=== PATIENT | male | born 1935 | race Caucasian/White ===

== ENCOUNTER 2019-05-30 18:26 | Inpatient (IN) ==
[2019-05-30] MEDS ORDERED: METOPROLOL TARTRATE 5 MG/5 ML VIAL IV STA (19:18)
[2019-05-30 19:38] LABS: Basophils % 0.1 % (0.0-0.8); Hemoglobin 12.7 GM/DL (14.0-18.0); Immature Granulocytes % 0.7 %; Immature Granulocytes Absolute 0.07 #; Lymphocytes # 1.2 10*3/uL (1.4-4.0); Lymphocytes % 11.4 % (21.2-54.2); Mean Corpuscular HGB Conc 35.3 GM/DL (32-36); Mean Corpuscular Volume 85.3 FL (87-102); Mean Platelet Volume 9.8 FL (9.6-12.0); Monocytes % 9.8 % (1.7-12.7); Platelet Count 237 T/CUMM (130-400); Red Blood Count 4.22 MC/CUMM (3.8-5.5); White Blood Count 10.4 T/CUMM (4-12)
[2019-05-30 20:10] LABS: Albumin 3.3 G/DL (3.4-5.0); Bilirubin,Total 1.8 MG/DL (0.2-1.0); Calcium 8.3 MG/DL (8.5-10.1); Free T4 (Free Thyroxine) 1.65 NG/DL (0.76-1.46); Osmolality,Calculated 252.5 MOS/KG (273-304); Thyroid Stimulating Hormone 0.665 uIU/ml (0.358-3.74); Total Protein 6.1 G/DL (6.4-8.3)
[2019-05-30] MEDS ORDERED: cloNIDine 0.1 MG TABLET PO STA (20:32)
[2019-05-30] MEDS ORDERED: ONDANSETRON ODT 4 MG TABLET PO ONE ×2 (20:35→20:39)
[2019-05-30 20:37] LABS: Bilirubin,Urine Negative (Negative); Blood, Urine Trace mg/dL (Negative); Glucose,Urine (UA) Negative (Negative); Ketones,Urine 100 mg/dL (Negative); Mucus,Urine Occasional /LPF (Occasional); Nitrite,Urine Negative (Negative); Protein,Urine 30 MG/DL; RBC,Urine 6 /HPF (0-4); Squamous Epithelial Cell,Urine Occasional /HPF (0-10); Urine Color Yellow (Yellow); WBC,Urine 3 /HPF (0-6)
[2019-05-30 20:38] LABS: Apearance,Urine CLEAR (Clear)
[2019-05-30] MEDS ORDERED: ONDANSETRON ODT 4 MG TABLET PO STA (20:44)
[2019-05-30] MEDS ORDERED: ASPIRIN 325 MG TABLET ONE (20:45)
[2019-05-30] MEDS ORDERED: ASPIRIN CHEW 81 MG TABLET PO STA (20:51)
[2019-05-30] MEDS ORDERED: NITROGLYCERIN SL 0.4 MG TABLET SL STA (20:51)
[2019-05-30] MEDS ORDERED: ONDANSETRON 4 MG/2 ML VIAL IV ONE (20:57)
[2019-05-30] MEDS ORDERED: MORPHINE 4 MG/1 ML VIAL IV STA (20:57)
[2019-05-30] MEDS ORDERED: ENOXAPARIN 30 MG/0.3 ML SYRINGE SUBCUT STA (20:57)
[2019-05-30 21:00] LABS: Barbiturates Screen,Urine Negative (Negative); Benzodiazepines Screen,Urine Negative (Negative); Cannabinoid Screen,Urine Negative (Negative); Opiate Screen,Urine Positive (Negative); Phencyclidine Screen,Urine Negative (Negative)
[2019-05-30] MEDS ORDERED: NITROGLYCERIN SL 0.4 MG TABLET SL PRN (21:13)
[2019-05-30] MEDS: ASPIRIN CHEW 81 MG TABLET PO SCH (23:35)
[2019-05-30] MEDS: SODIUM CHLORIDE 0.9% 1,000 ML IV SCH (23:35)
[2019-05-31] MEDS: MORPHINE 4 MG/1 ML VIAL IV PRN ×3 (02:28→21:10)
[2019-05-31] MEDS: SODIUM CHLORIDE 0.9% 1,000 ML IV SCH ×3 (05:33→21:12)
[2019-05-31 07:33] LABS: Basophils % 0.2 % (0.0-0.8); Hematocrit 33.1 VOL% (42.0-52.0); Hemoglobin 11.3 GM/DL (14.0-18.0); Immature Granulocytes % 0.6 %; Immature Granulocytes Absolute 0.04 #; Lymphocytes # 1.4 10*3/uL (1.4-4.0); Lymphocytes % 21.6 % (21.2-54.2); Mean Corpuscular HGB Conc 34.1 GM/DL (32-36); Mean Corpuscular Volume 87.1 FL (87-102); Mean Platelet Volume 10.7 FL (9.6-12.0); Neutrophils % 62.6 % (38.7-73.9); Platelet Count 197 T/CUMM (130-400); Red Cell Distribution Width 12.3 % (9.3-17.3); White Blood Count 6.5 T/CUMM (4-12)
[2019-05-31] MEDS: ONDANSETRON 4 MG/2 ML VIAL IV PRN ×2 (07:50→21:10)
[2019-05-31] MEDS ORDERED: NITROGLYCERIN 2% OINT 1 INCH/GM PACK TOP SCH (07:56)
[2019-05-31] MEDS: PANTOPRAZOLE 40 MG VIAL IV SCH (07:59)
[2019-05-31 08:00] LABS: Osmolality,Calculated 255.1 MOS/KG (273-304)
[2019-05-31] MEDS ORDERED: POTASSIUM CHLORIDE RIDER 10 MEQ in PREMIX 1 EACH IV PRN (08:21)
[2019-05-31] MEDS: METOPROLOL SUCCINATE XL 25 MG TABLET PO SCH (08:51)
[2019-05-31] MEDS: LOSARTAN 50 MG TABLET PO SCH ×2 (08:52→21:10)
[2019-05-31] MEDS ORDERED: ENOXAPARIN 80 MG/0.8 ML SYRINGE SUBCUT SCH (09:00)
[2019-05-31] MEDS: ROSUVASTATIN 10 MG TABLET PO SCH (09:04)
[2019-05-31] MEDS ORDERED: DIAZEPAM 5 MG TABLET PO ONE (09:17)
[2019-05-31] MEDS ORDERED: MAGNESIUM SULF RIDER 2 GM in PREMIX 1 EACH IV PRN (09:17)
[2019-05-31] MEDS ORDERED: LIDOCAINE 1% 20 ML VIAL ONE (09:34)
[2019-05-31] MEDS ORDERED: NITROGLYCERIN DRIP 50 MG/250 ML BOTTLE IV ONE (09:34)
[2019-05-31] MEDS ORDERED: VERAPAMIL 5 MG/2 ML VIAL ONE (09:35)
[2019-05-31] MEDS ORDERED: HYDROmorphone 2 MG/1 ML VIAL ONE (10:05)
[2019-05-31] MEDS ORDERED: MIDAZOLAM 2 MG/2 ML VIAL ONE (10:06)
[2019-05-31] MEDS ORDERED: NITROGLYCERIN SL 0.4 MG TABLET SL PRN (10:38)
[2019-05-31] MEDS ORDERED: TICAGRELOR 90 MG TABLET ONE (10:54)
[2019-05-31] MEDS: POTASSIUM CHLORIDE 20 MEQ TABLET PO PRN ×4 (12:17→21:10)
[2019-05-31 13:37] LABS: CKMB % 4.9 %
[2019-05-31 13:41] LABS: Troponin I 2.37 NG/ML (0.00-0.045)
[2019-05-31] MEDS: TAMSULOSIN 0.4 MG CAPSULE PO SCH ×2 (13:50→21:10)
[2019-05-31] MEDS: TICAGRELOR 90 MG TABLET PO SCH (21:10)
[2019-05-31] MEDS: ASPIRIN CHEW 81 MG TABLET PO SCH (21:10)
[2019-05-31] MEDS ORDERED: ZALEPLON 5 MG CAPSULE PO PRN (22:15)
[2019-06-01] MEDS: MORPHINE 4 MG/1 ML VIAL IV PRN ×3 (02:38→13:56)
[2019-06-01 05:01] LABS: Basophils % 0.3 % (0.0-0.8); Eosinophils % 0.6 % (0.00-10.9); Hematocrit 30.3 VOL% (42.0-52.0); Hemoglobin 10.3 GM/DL (14.0-18.0); Immature Granulocytes % 0.6 %; Immature Granulocytes Absolute 0.04 #; Lymphocytes # 1.2 10*3/uL (1.4-4.0); Lymphocytes % 17.7 % (21.2-54.2); Mean Corpuscular Volume 88.6 FL (87-102); Mean Platelet Volume 10.9 FL (9.6-12.0); Monocytes % 12.3 % (1.7-12.7); Neutrophils % 68.5 % (38.7-73.9); Platelet Count 181 T/CUMM (130-400); Red Blood Count 3.42 MC/CUMM (3.8-5.5); Red Cell Distribution Width 12.5 % (9.3-17.3); White Blood Count 6.6 T/CUMM (4-12)
[2019-06-01] MEDS: SODIUM CHLORIDE 0.9% 1,000 ML IV SCH (05:15)
[2019-06-01 05:34] LABS: Calcium 8.1 MG/DL (8.5-10.1); Osmolality,Calculated 263.5 MOS/KG (273-304)
[2019-06-01 05:40] LABS: Risk Ratio 2.55
[2019-06-01 05:51] LABS: CKMB % 5.9 %
[2019-06-01 05:52] LABS: Troponin I 2.27 NG/ML (0.00-0.045)
[2019-06-01] MEDS ORDERED: ASPIRIN EC 81 MG TABLET PO SCH (09:00)
[2019-06-01] MEDS: ENOXAPARIN 40 MG/0.4 ML SYRINGE SUBCUT SCH (09:33)
[2019-06-01] MEDS: LOSARTAN 50 MG TABLET PO SCH (09:33)
[2019-06-01] MEDS: TICAGRELOR 90 MG TABLET PO SCH ×2 (09:33→22:32)
[2019-06-01] MEDS: TAMSULOSIN 0.4 MG CAPSULE PO SCH ×2 (09:33→22:33)
[2019-06-01] MEDS: METOPROLOL SUCCINATE XL 25 MG TABLET PO SCH (09:33)
[2019-06-01] MEDS: PANTOPRAZOLE 40 MG VIAL IV SCH (09:33)
[2019-06-01] MEDS: LORazepam 0.5 MG TABLET PO SCH ×2 (09:56→16:39)
[2019-06-01] MEDS ORDERED: METOPROLOL SUCCINATE XL 25 MG TABLET PO ONE (13:02)
[2019-06-01] MEDS: ONDANSETRON 4 MG/2 ML VIAL IV PRN (16:09)
[2019-06-01] MEDS: ZIPRASIDONE 20 MG CAPSULE PO SCH (22:32)
[2019-06-01] MEDS: SACUBITRIL/VALSARTAN 49-51 MG TABLET PO SCH (22:33)
[2019-06-01] MEDS: ASPIRIN CHEW 81 MG TABLET PO SCH (22:33)
[2019-06-02] MEDS: LORazepam 0.5 MG TABLET PO SCH ×2 (00:16→08:39)
[2019-06-02 05:18] LABS: Basophils % 0.3 % (0.0-0.8); Eosinophils # 0.1 10*3/uL (0.0-0.87); Eosinophils % 1.9 % (0.00-10.9); Hematocrit 34.2 VOL% (42.0-52.0); Hemoglobin 11.4 GM/DL (14.0-18.0); Immature Granulocytes % 0.6 %; Immature Granulocytes Absolute 0.04 #; Lymphocytes # 1.4 10*3/uL (1.4-4.0); Lymphocytes % 20.1 % (21.2-54.2); Mean Corpuscular HGB Conc 33.3 GM/DL (32-36); Mean Corpuscular Volume 89.5 FL (87-102); Mean Platelet Volume 10.8 FL (9.6-12.0); Monocytes % 10.7 % (1.7-12.7); Neutrophils % 66.4 % (38.7-73.9); Platelet Count 182 T/CUMM (130-400); Red Blood Count 3.82 MC/CUMM (3.8-5.5); Red Cell Distribution Width 12.7 % (9.3-17.3); White Blood Count 6.8 T/CUMM (4-12)
[2019-06-02 05:44] LABS: Calcium 8.5 MG/DL (8.5-10.1); Osmolality,Calculated 272.8 MOS/KG (273-304)
[2019-06-02] MEDS: PANTOPRAZOLE 40 MG VIAL IV SCH (08:38)
[2019-06-02] MEDS: ENOXAPARIN 40 MG/0.4 ML SYRINGE SUBCUT SCH (08:38)
[2019-06-02] MEDS: ROSUVASTATIN 10 MG TABLET PO SCH (08:39)
[2019-06-02] MEDS: SACUBITRIL/VALSARTAN 49-51 MG TABLET PO SCH (08:39)
[2019-06-02] MEDS: ZIPRASIDONE 20 MG CAPSULE PO SCH (08:39)
[2019-06-02] MEDS: TICAGRELOR 90 MG TABLET PO SCH (08:39)
[2019-06-02] MEDS: TAMSULOSIN 0.4 MG CAPSULE PO SCH (08:39)
[2019-06-02] MEDS: MORPHINE 4 MG/1 ML VIAL IV PRN ×2 (08:51→14:10)
[2019-06-02] MEDS ORDERED: METOPROLOL SUCCINATE XL 50 MG TABLET PO SCH (09:00)
[2019-06-02 13:48] VITALS: BP 163/80
== END 2019-06-02 15:40 | DRG 247 ==
LOC: N.ED 18:26 → N.EDINP 21:03 → N.TELEN 21:30
PROVIDERS: ADMIT Family Medicine; ATTEND Family Medicine
PROC: CLCCHCL (ICD-10-PCS; 2019-05-31 10:15)

== ENCOUNTER 2019-06-07 11:47 | Inpatient (IN) ==
[2019-06-07] MEDS ORDERED: SODIUM CHLORIDE 0.9% 500 ML IV STA (12:25)
[2019-06-07] MEDS ORDERED: ONDANSETRON 4 MG/2 ML VIAL IV STA (12:25)
[2019-06-07] MEDS ORDERED: MORPHINE 4 MG/1 ML VIAL IV STA (12:25)
[2019-06-07 14:17] LABS: Apearance,Urine CLEAR (Clear); Bilirubin,Urine Negative (Negative); Blood, Urine Moderate mg/dL (Negative); Glucose,Urine (UA) Negative (Negative); Hyaline Casts,Urine 4 /LPF (0-3); Ketones,Urine 5 mg/dL (Negative); Mucus,Urine Occasional /LPF (Occasional); Nitrite,Urine Negative (Negative); Protein,Urine Negative; RBC,Urine 46 /HPF (0-4); Urine Color Yellow (Yellow); Urine Specific Gravity 1.021 (1.001-1.035); WBC,Urine 1 /HPF (0-6)
[2019-06-07 17:12] LABS: Basophils % 0.1 % (0.0-0.8); Eosinophils % 0.3 % (0.00-10.9); Hematocrit 31.1 VOL% (42.0-52.0); Hemoglobin 10.2 GM/DL (14.0-18.0); Immature Granulocytes % 1.4 %; Immature Granulocytes Absolute 0.16 #; Lymphocytes # 0.7 10*3/uL (1.4-4.0); Lymphocytes % 6.1 % (21.2-54.2); Mean Corpuscular HGB Conc 32.8 GM/DL (32-36); Mean Corpuscular Volume 92.6 FL (87-102); Mean Platelet Volume 10.6 FL (9.6-12.0); Monocytes % 9.2 % (1.7-12.7); Neutrophils % 82.9 % (38.7-73.9); Platelet Count 175 T/CUMM (130-400); Red Blood Count 3.36 MC/CUMM (3.8-5.5); Red Cell Distribution Width 12.9 % (9.3-17.3); White Blood Count 11.4 T/CUMM (4-12)
[2019-06-07 17:20] LABS: INR 0.9
[2019-06-07 17:35] LABS: Albumin 2.8 G/DL (3.4-5.0); Bilirubin,Total 1.6 MG/DL (0.2-1.0); Calcium 8.1 MG/DL (8.5-10.1); Osmolality,Calculated 276.2 MOS/KG (273-304); Total Protein 5.9 G/DL (6.4-8.3)
[2019-06-07] MEDS ORDERED: ONDANSETRON 4 MG/2 ML VIAL IV PRN (17:37)
[2019-06-07] MEDS ORDERED: NITROGLYCERIN SL 0.4 MG TABLET SL PRN (17:37)
[2019-06-07] MEDS: SODIUM CHLORIDE 0.9% 1,000 ML IV SCH (18:46)
[2019-06-07] MEDS: ROSUVASTATIN 10 MG TABLET PO SCH (18:46)
[2019-06-07 18:53] LABS: Troponin I 0.075 NG/ML (0.00-0.045)
[2019-06-07] MEDS ORDERED: LOSARTAN 50 MG TABLET PO SCH (21:00)
[2019-06-07] MEDS: DOCUSATE SODIUM 100 MG CAPSULE PO SCH (21:33)
[2019-06-07] MEDS: SACUBITRIL/VALSARTAN 49-51 MG TABLET PO SCH (21:34)
[2019-06-07] MEDS: TAMSULOSIN 0.4 MG CAPSULE PO SCH (21:34)
[2019-06-07] MEDS: BENZTROPINE 0.5 MG TABLET PO SCH (21:37)
[2019-06-07 21:43] LABS: Troponin I 0.087 NG/ML (0.00-0.045)
[2019-06-07] MEDS: MORPHINE 4 MG/1 ML VIAL IV PRN (23:52)
[2019-06-08 00:04] LABS: Troponin I 0.083 NG/ML (0.00-0.045)
[2019-06-08 02:46] LABS: Basophils % 0.1 % (0.0-0.8); Eosinophils % 0.3 % (0.00-10.9); Hematocrit 29.4 VOL% (42.0-52.0); Hemoglobin 9.5 GM/DL (14.0-18.0); Immature Granulocytes % 0.9 %; Immature Granulocytes Absolute 0.07 #; Lymphocytes # 0.6 10*3/uL (1.4-4.0); Lymphocytes % 7.2 % (21.2-54.2); Mean Corpuscular HGB Conc 32.3 GM/DL (32-36); Mean Corpuscular Volume 91.9 FL (87-102); Mean Platelet Volume 10.5 FL (9.6-12.0); Monocytes % 10.6 % (1.7-12.7); Neutrophils % 80.9 % (38.7-73.9); Platelet Count 155 T/CUMM (130-400); Red Cell Distribution Width 12.9 % (9.3-17.3); White Blood Count 7.8 T/CUMM (4-12)
[2019-06-08 03:16] LABS: Albumin 2.5 G/DL (3.4-5.0); Bilirubin,Total 1.7 MG/DL (0.2-1.0); Osmolality,Calculated 274.2 MOS/KG (273-304); Total Protein 5.4 G/DL (6.4-8.3)
[2019-06-08 03:20] LABS: Troponin I 0.092 NG/ML (0.00-0.045)
[2019-06-08] MEDS: MORPHINE 4 MG/1 ML VIAL IV PRN ×3 (03:43→22:18)
[2019-06-08] MEDS: LEVOTHYROXINE 50 MCG TABLET PO SCH (06:49)
[2019-06-08] MEDS: SODIUM CHLORIDE 0.9% 1,000 ML IV SCH ×3 (07:10→21:12)
[2019-06-08] MEDS: BENZTROPINE 0.5 MG TABLET PO SCH ×2 (09:00→20:27)
[2019-06-08] MEDS: traZODone 50 MG TABLET PO SCH ×2 (09:00→15:48)
[2019-06-08] MEDS: TAMSULOSIN 0.4 MG CAPSULE PO SCH ×2 (09:00→20:28)
[2019-06-08] MEDS: DOCUSATE SODIUM 100 MG CAPSULE PO SCH ×2 (09:00→20:28)
[2019-06-08] MEDS: SACUBITRIL/VALSARTAN 49-51 MG TABLET PO SCH ×2 (09:10→20:27)
[2019-06-08] MEDS: METOPROLOL SUCCINATE XL 25 MG TABLET PO SCH (09:11)
[2019-06-08] MEDS: DILTIAZEM CD 120 MG CAPSULE PO SCH (09:11)
[2019-06-08] MEDS: PANTOPRAZOLE 40 MG VIAL IV SCH (09:12)
[2019-06-08] MEDS ORDERED: HEPARIN/NACL 0.9% 2 UNITS/ML 500 ML IV ONE (10:09)
[2019-06-08] MEDS ORDERED: VANCOMYCIN 1,000 MG VIAL ONE (11:33)
[2019-06-08] MEDS ORDERED: BISACODYL 10 MG SUPP RECTAL PRN (12:06)
[2019-06-08] MEDS ORDERED: PROMETHAZINE 25 MG/1 ML VIAL IM PRN (12:06)
[2019-06-08] MEDS ORDERED: LACTULOSE 20 GM/30 ML UDCUP PO PRN (12:06)
[2019-06-08] MEDS ORDERED: MAGNESIUM HYDROXIDE SUSP 30 ML UDCUP PO PRN (12:06)
[2019-06-08] MEDS ORDERED: diphenhydrAMINE CAP 25 MG CAPSULE PO PRN (12:06)
[2019-06-08] MEDS ORDERED: MORPHINE 4 MG/1 ML VIAL IV PRN (12:10)
[2019-06-08] MEDS ORDERED: propofoL 200 MG/20 ML VIAL IV ONE (12:38)
[2019-06-08] MEDS ORDERED: LIDOCAINE 2% 5 ML VIAL ONE (12:38)
[2019-06-08] MEDS ORDERED: PHENYLEPHRINE DRIP 20 MG/250 ML PREMIX IV ONE (12:38)
[2019-06-08] MEDS ORDERED: SEVOFLURANE 1 UNIT/15 MINUTE INH ONE (12:38)
[2019-06-08] MEDS ORDERED: GLYCOPYRROLATE 0.4 MG/2 ML VIAL ONE (12:39)
[2019-06-08] MEDS ORDERED: ROCURONIUM 100 MG/10 ML VIAL IV ONE (12:39)
[2019-06-08] MEDS ORDERED: ETOMIDATE 40 MG/20 ML VIAL IV ONE (12:39)
[2019-06-08] MEDS ORDERED: DEXAMETHASONE 4 MG/1 ML VIAL ONE (12:39)
[2019-06-08] MEDS ORDERED: ONDANSETRON 4 MG/2 ML VIAL ONE (12:39)
[2019-06-08] MEDS ORDERED: PHENYLEPHRINE 1 MG/10 ML SYRINGE IV ONE (12:39)
[2019-06-08] MEDS ORDERED: fentaNYL 100 MCG/2 ML VIAL ONE (12:39)
[2019-06-08] MEDS ORDERED: NEOSTIGMINE 10 MG/10 ML VIAL ONE (12:40)
[2019-06-08 13:24] LABS: ABG Base Excess -3.6 MMOL/L (-2.5-2.5); ABG HCO3 21.4 MMOL/L (20-26); ABG Oxygen Saturation 97.9 % (95-100); ABG PCO2 28.6 MM HG (35-48); ABG PH 7.445 (7.35-7.45)
[2019-06-08] MEDS ORDERED: hydrALAZINE 20 MG/1 ML VIAL IV PRN (14:13)
[2019-06-08] MEDS: buPROPion SR 150 MG TABLET PO SCH (15:48)
[2019-06-08] MEDS: CYANOCOBALAMIN 500 MCG TABLET PO SCH (15:48)
[2019-06-08] MEDS ORDERED: LIDOCAINE 2% TOP JELLY 20 ML VIAL INTRAURETH ONE (17:21)
[2019-06-09 04:59] LABS: Basophils % 0.1 % (0.0-0.8); Hematocrit 22.8 VOL% (42.0-52.0); Hemoglobin 7.4 GM/DL (14.0-18.0); Immature Granulocytes % 0.6 %; Immature Granulocytes Absolute 0.06 #; Lymphocytes # 0.5 10*3/uL (1.4-4.0); Lymphocytes % 5.4 % (21.2-54.2); Mean Corpuscular HGB Conc 32.5 GM/DL (32-36); Mean Corpuscular Volume 92.3 FL (87-102); Mean Platelet Volume 11.4 FL (9.6-12.0); Monocytes % 9.7 % (1.7-12.7); Neutrophils % 84.2 % (38.7-73.9); Platelet Count 162 T/CUMM (130-400); Red Blood Count 2.47 MC/CUMM (3.8-5.5); Red Cell Distribution Width 13.1 % (9.3-17.3)
[2019-06-09 05:19] LABS: Osmolality,Calculated 283.7 MOS/KG (273-304)
[2019-06-09] MEDS ORDERED: VANCOMYCIN INJ 1,000 MG in SODIUM CHLORIDE 0.9% 250 ML IV ONE (06:00)
[2019-06-09] MEDS: MORPHINE 4 MG/1 ML VIAL IV PRN ×3 (06:17→22:03)
[2019-06-09] MEDS ORDERED: SODIUM CHLORIDE 0.9% 1,000 ML IV PRN (07:06)
[2019-06-09] MEDS: LEVOTHYROXINE 50 MCG TABLET PO SCH (07:12)
[2019-06-09] MEDS: SODIUM CHLORIDE 0.9% 1,000 ML IV SCH ×2 (08:00→19:42)
[2019-06-09] MEDS: PANTOPRAZOLE 40 MG VIAL IV SCH (09:50)
[2019-06-09] MEDS: DOCUSATE SODIUM 100 MG CAPSULE PO SCH ×2 (09:50→20:24)
[2019-06-09] MEDS: SACUBITRIL/VALSARTAN 49-51 MG TABLET PO SCH ×2 (09:50→20:25)
[2019-06-09] MEDS: traZODone 50 MG TABLET PO SCH ×2 (09:50→11:59)
[2019-06-09] MEDS: DILTIAZEM CD 120 MG CAPSULE PO SCH (09:50)
[2019-06-09] MEDS: TICAGRELOR 90 MG TABLET PO SCH ×2 (09:50→20:25)
[2019-06-09] MEDS: TAMSULOSIN 0.4 MG CAPSULE PO SCH ×2 (09:50→20:24)
[2019-06-09] MEDS: BENZTROPINE 0.5 MG TABLET PO SCH ×2 (09:50→20:25)
[2019-06-09] MEDS: CYANOCOBALAMIN 500 MCG TABLET PO SCH (09:50)
[2019-06-09] MEDS: METOPROLOL SUCCINATE XL 25 MG TABLET PO SCH (09:50)
[2019-06-09] MEDS: buPROPion SR 150 MG TABLET PO SCH (09:50)
[2019-06-09] MEDS: ZIPRASIDONE 20 MG CAPSULE PO SCH ×2 (10:06→20:25)
[2019-06-09 13:02] LABS: Troponin I 0.083 NG/ML (0.00-0.045)
[2019-06-09] MEDS: ROSUVASTATIN 10 MG TABLET PO SCH (17:41)
[2019-06-09 20:46] LABS: Hematocrit 31.4 VOL% (42.0-52.0)
[2019-06-09 20:47] LABS: Hemoglobin 10.3 GM/DL (14.0-18.0)
[2019-06-10] MEDS: MORPHINE 4 MG/1 ML VIAL IV PRN (03:45)
[2019-06-10 05:01] LABS: Basophils % 0.1 % (0.0-0.8); Eosinophils % 0.1 % (0.00-10.9); Hematocrit 31.3 VOL% (42.0-52.0); Hemoglobin 10.4 GM/DL (14.0-18.0); Immature Granulocytes % 0.9 %; Immature Granulocytes Absolute 0.08 #; Lymphocytes # 0.8 10*3/uL (1.4-4.0); Lymphocytes % 9.3 % (21.2-54.2); Mean Corpuscular HGB Conc 33.2 GM/DL (32-36); Mean Corpuscular Volume 92.9 FL (87-102); Mean Platelet Volume 10.5 FL (9.6-12.0); Monocytes % 8.8 % (1.7-12.7); Neutrophils % 80.8 % (38.7-73.9); Platelet Count 147 T/CUMM (130-400); Red Blood Count 3.37 MC/CUMM (3.8-5.5); Red Cell Distribution Width 13.4 % (9.3-17.3)
[2019-06-10 05:33] LABS: Troponin I 0.074 NG/ML (0.00-0.045)
[2019-06-10] MEDS: LEVOTHYROXINE 50 MCG TABLET PO SCH (06:26)
[2019-06-10] MEDS: SODIUM CHLORIDE 0.9% 1,000 ML IV SCH ×2 (07:28→12:51)
[2019-06-10] MEDS: buPROPion SR 150 MG TABLET PO SCH (08:48)
[2019-06-10] MEDS: METOPROLOL SUCCINATE XL 25 MG TABLET PO SCH (08:48)
[2019-06-10] MEDS: DILTIAZEM CD 120 MG CAPSULE PO SCH (08:49)
[2019-06-10] MEDS: TAMSULOSIN 0.4 MG CAPSULE PO SCH ×2 (08:49→21:40)
[2019-06-10] MEDS: traZODone 50 MG TABLET PO SCH ×2 (08:49→12:51)
[2019-06-10] MEDS: ASPIRIN EC 81 MG TABLET PO SCH (08:49)
[2019-06-10] MEDS: BENZTROPINE 0.5 MG TABLET PO SCH ×2 (08:49→21:40)
[2019-06-10] MEDS: PANTOPRAZOLE 40 MG TABLET PO SCH (08:49)
[2019-06-10] MEDS: CYANOCOBALAMIN 500 MCG TABLET PO SCH (08:50)
[2019-06-10] MEDS: TICAGRELOR 90 MG TABLET PO SCH ×2 (08:50→21:40)
[2019-06-10] MEDS: ZIPRASIDONE 20 MG CAPSULE PO SCH ×2 (08:50→21:40)
[2019-06-10] MEDS: SACUBITRIL/VALSARTAN 49-51 MG TABLET PO SCH ×2 (08:50→21:40)
[2019-06-10] MEDS: DOCUSATE SODIUM 100 MG CAPSULE PO SCH ×2 (08:50→21:40)
[2019-06-10 12:29] LABS: Troponin I 0.064 NG/ML (0.00-0.045)
[2019-06-11] MEDS: SODIUM CHLORIDE 0.9% 1,000 ML IV SCH ×2 (03:40→17:20)
[2019-06-11 05:20] LABS: Basophils % 0.1 % (0.0-0.8); Eosinophils # 0.1 10*3/uL (0.0-0.87); Eosinophils % 0.8 % (0.00-10.9); Hematocrit 28.8 VOL% (42.0-52.0); Hemoglobin 9.4 GM/DL (14.0-18.0); Immature Granulocytes % 0.9 %; Immature Granulocytes Absolute 0.07 #; Lymphocytes # 0.8 10*3/uL (1.4-4.0); Mean Corpuscular HGB Conc 32.6 GM/DL (32-36); Mean Corpuscular Volume 93.5 FL (87-102); Mean Platelet Volume 10.7 FL (9.6-12.0); Monocytes % 8.6 % (1.7-12.7); Neutrophils % 79.6 % (38.7-73.9); Platelet Count 145 T/CUMM (130-400); Red Blood Count 3.08 MC/CUMM (3.8-5.5); Red Cell Distribution Width 13.2 % (9.3-17.3); White Blood Count 7.9 T/CUMM (4-12)
[2019-06-11] MEDS: ACETAMINOPHEN 325 MG TABLET PO PRN (06:14)
[2019-06-11] MEDS: LEVOTHYROXINE 50 MCG TABLET PO SCH (06:14)
[2019-06-11] MEDS: ZIPRASIDONE 20 MG CAPSULE PO SCH ×2 (08:23→20:57)
[2019-06-11] MEDS: buPROPion SR 150 MG TABLET PO SCH (08:23)
[2019-06-11] MEDS: traZODone 50 MG TABLET PO SCH ×2 (08:24→12:26)
[2019-06-11] MEDS: DILTIAZEM CD 120 MG CAPSULE PO SCH (08:24)
[2019-06-11] MEDS: TAMSULOSIN 0.4 MG CAPSULE PO SCH ×2 (08:25→20:58)
[2019-06-11] MEDS: PANTOPRAZOLE 40 MG TABLET PO SCH (08:25)
[2019-06-11] MEDS: TICAGRELOR 90 MG TABLET PO SCH ×2 (08:25→20:58)
[2019-06-11] MEDS: SACUBITRIL/VALSARTAN 49-51 MG TABLET PO SCH ×2 (08:25→20:57)
[2019-06-11] MEDS: DOCUSATE SODIUM 100 MG CAPSULE PO SCH ×2 (08:25→20:58)
[2019-06-11] MEDS: ASPIRIN EC 81 MG TABLET PO SCH (08:25)
[2019-06-11] MEDS: CYANOCOBALAMIN 500 MCG TABLET PO SCH (08:25)
[2019-06-11] MEDS: METOPROLOL SUCCINATE XL 25 MG TABLET PO SCH (08:25)
[2019-06-11] MEDS: BENZTROPINE 0.5 MG TABLET PO SCH ×2 (08:25→20:57)
[2019-06-11] MEDS ORDERED: TUBERCULIN SKIN TEST 0.1 ML SYRINGE INTRADERM ONE (14:54)
[2019-06-11] MEDS: ROSUVASTATIN 10 MG TABLET PO SCH (17:23)
[2019-06-11] MEDS: MORPHINE 4 MG/1 ML VIAL IV PRN (23:55)
[2019-06-12] MEDS: SODIUM CHLORIDE 0.9% 1,000 ML IV SCH ×4 (04:17→21:11)
[2019-06-12] MEDS: LEVOTHYROXINE 50 MCG TABLET PO SCH (06:22)
[2019-06-12] MEDS: ZIPRASIDONE 20 MG CAPSULE PO SCH (09:20)
[2019-06-12] MEDS: buPROPion SR 150 MG TABLET PO SCH (09:20)
[2019-06-12] MEDS: SACUBITRIL/VALSARTAN 49-51 MG TABLET PO SCH ×2 (09:21→21:11)
[2019-06-12] MEDS: ASPIRIN EC 81 MG TABLET PO SCH (09:22)
[2019-06-12] MEDS: traZODone 50 MG TABLET PO SCH ×2 (09:22→14:25)
[2019-06-12] MEDS: TICAGRELOR 90 MG TABLET PO SCH ×2 (09:23→21:12)
[2019-06-12] MEDS: PANTOPRAZOLE 40 MG TABLET PO SCH (09:24)
[2019-06-12] MEDS: DILTIAZEM CD 120 MG CAPSULE PO SCH (09:24)
[2019-06-12] MEDS: TAMSULOSIN 0.4 MG CAPSULE PO SCH ×2 (09:25→21:11)
[2019-06-12] MEDS: BENZTROPINE 0.5 MG TABLET PO SCH ×2 (09:25→21:11)
[2019-06-12] MEDS: DOCUSATE SODIUM 100 MG CAPSULE PO SCH ×2 (09:26→21:11)
[2019-06-12] MEDS: CYANOCOBALAMIN 500 MCG TABLET PO SCH (09:27)
[2019-06-12] MEDS: METOPROLOL SUCCINATE XL 25 MG TABLET PO SCH (09:29)
[2019-06-12] MEDS: traMADol 50 MG TABLET PO PRN (21:12)
[2019-06-13] MEDS: LEVOTHYROXINE 50 MCG TABLET PO SCH (05:55)
[2019-06-13] MEDS: traMADol 50 MG TABLET PO PRN ×2 (05:55→18:00)
[2019-06-13 06:25] LABS: Basophils % 0.1 % (0.0-0.8); Eosinophils # 0.1 10*3/uL (0.0-0.87); Eosinophils % 0.8 % (0.00-10.9); Hematocrit 27.3 VOL% (42.0-52.0); Hemoglobin 9.1 GM/DL (14.0-18.0); Immature Granulocytes % 0.6 %; Immature Granulocytes Absolute 0.05 #; Lymphocytes # 0.7 10*3/uL (1.4-4.0); Lymphocytes % 8.1 % (21.2-54.2); Mean Corpuscular HGB Conc 33.3 GM/DL (32-36); Mean Corpuscular Volume 91.9 FL (87-102); Mean Platelet Volume 10.6 FL (9.6-12.0); Monocytes % 5.8 % (1.7-12.7); Neutrophils % 84.6 % (38.7-73.9); Platelet Count 151 T/CUMM (130-400); Red Blood Count 2.97 MC/CUMM (3.8-5.5); Red Cell Distribution Width 13.3 % (9.3-17.3); White Blood Count 8.6 T/CUMM (4-12)
[2019-06-13 07:03] LABS: Albumin 1.7 G/DL (3.4-5.0); Bilirubin,Total 1.7 MG/DL (0.2-1.0); Calcium 6.7 MG/DL (8.5-10.1); Osmolality,Calculated 283.3 MOS/KG (273-304); Total Protein 4.3 G/DL (6.4-8.3)
[2019-06-13] MEDS: SODIUM CHLORIDE 0.9% 1,000 ML IV SCH (07:32)
[2019-06-13] MEDS: ASPIRIN EC 81 MG TABLET PO SCH (08:26)
[2019-06-13] MEDS: DILTIAZEM CD 120 MG CAPSULE PO SCH (08:26)
[2019-06-13] MEDS: SACUBITRIL/VALSARTAN 49-51 MG TABLET PO SCH ×2 (08:26→20:32)
[2019-06-13] MEDS: DOCUSATE SODIUM 100 MG CAPSULE PO SCH ×2 (08:27→20:32)
[2019-06-13] MEDS: TICAGRELOR 90 MG TABLET PO SCH ×2 (08:27→20:32)
[2019-06-13] MEDS: PANTOPRAZOLE 40 MG TABLET PO SCH (08:27)
[2019-06-13] MEDS: METOPROLOL SUCCINATE XL 25 MG TABLET PO SCH (08:27)
[2019-06-13] MEDS: BENZTROPINE 0.5 MG TABLET PO SCH ×2 (08:27→20:32)
[2019-06-13] MEDS: TAMSULOSIN 0.4 MG CAPSULE PO SCH ×2 (08:27→20:32)
[2019-06-13] MEDS: buPROPion SR 150 MG TABLET PO SCH (08:27)
[2019-06-13] MEDS: CYANOCOBALAMIN 500 MCG TABLET PO SCH (08:27)
[2019-06-13] MEDS: traZODone 50 MG TABLET PO SCH ×2 (08:27→11:21)
[2019-06-13] MEDS: LIDOCAINE 5% PATCH TRANSDERM SCH (11:22)
[2019-06-13] MEDS: MORPHINE 4 MG/1 ML VIAL IV PRN (21:00)
[2019-06-14] MEDS: traMADol 50 MG TABLET PO PRN ×4 (00:19→21:33)
[2019-06-14] MEDS: SODIUM CHLORIDE 0.9% 1,000 ML IV SCH ×4 (02:39→22:57)
[2019-06-14] MEDS ORDERED: POTASSIUM CHLORIDE 20 MEQ TABLET PO PRN (04:34)
[2019-06-14] MEDS ORDERED: POTASSIUM CHLORIDE 20 MEQ TABLET PO ONE (04:34)
[2019-06-14] MEDS: ALBUMIN 25% 25 GM in PREMIX 1 EACH IV SCH ×2 (05:56→15:20)
[2019-06-14] MEDS: LEVOTHYROXINE 50 MCG TABLET PO SCH (05:56)
[2019-06-14] MEDS: LIDOCAINE 5% PATCH TRANSDERM SCH (09:24)
[2019-06-14] MEDS: traZODone 50 MG TABLET PO SCH ×2 (09:25→12:40)
[2019-06-14] MEDS: DOCUSATE SODIUM 100 MG CAPSULE PO SCH ×2 (09:25→21:33)
[2019-06-14] MEDS: PANTOPRAZOLE 40 MG TABLET PO SCH (09:25)
[2019-06-14] MEDS: CYANOCOBALAMIN 500 MCG TABLET PO SCH (09:25)
[2019-06-14] MEDS: BENZTROPINE 0.5 MG TABLET PO SCH ×2 (09:25→21:33)
[2019-06-14] MEDS: DILTIAZEM CD 120 MG CAPSULE PO SCH (09:25)
[2019-06-14] MEDS: TICAGRELOR 90 MG TABLET PO SCH ×2 (09:25→21:28)
[2019-06-14] MEDS: ASPIRIN EC 81 MG TABLET PO SCH (09:25)
[2019-06-14] MEDS: TAMSULOSIN 0.4 MG CAPSULE PO SCH ×2 (09:25→21:33)
[2019-06-14] MEDS: buPROPion SR 150 MG TABLET PO SCH (09:25)
[2019-06-14] MEDS: METOPROLOL SUCCINATE XL 25 MG TABLET PO SCH (09:55)
[2019-06-14] MEDS: SACUBITRIL/VALSARTAN 49-51 MG TABLET PO SCH ×2 (09:55→21:33)
[2019-06-14] MEDS: ROSUVASTATIN 10 MG TABLET PO SCH (18:50)
[2019-06-14] MEDS: ZIPRASIDONE 20 MG CAPSULE PO SCH (21:33)
[2019-06-15] MEDS: ALBUMIN 25% 25 GM in PREMIX 1 EACH IV SCH ×4 (01:39→23:38)
[2019-06-15] MEDS: LEVOTHYROXINE 50 MCG TABLET PO SCH (05:43)
[2019-06-15 06:02] LABS: Basophils % 0.3 % (0.0-0.8); Eosinophils # 0.2 10*3/uL (0.0-0.87); Eosinophils % 2.3 % (0.00-10.9); Hematocrit 25.3 VOL% (42.0-52.0); Hemoglobin 8.3 GM/DL (14.0-18.0); Immature Granulocytes Absolute 0.08 #; Lymphocytes # 0.7 10*3/uL (1.4-4.0); Lymphocytes % 9.3 % (21.2-54.2); Mean Corpuscular HGB Conc 32.8 GM/DL (32-36); Mean Corpuscular Volume 94.1 FL (87-102); Mean Platelet Volume 11.1 FL (9.6-12.0); Monocytes % 6.7 % (1.7-12.7); Neutrophils % 80.4 % (38.7-73.9); Platelet Count 143 T/CUMM (130-400); Red Blood Count 2.69 MC/CUMM (3.8-5.5); Red Cell Distribution Width 13.7 % (9.3-17.3); White Blood Count 7.9 T/CUMM (4-12)
[2019-06-15 06:14] LABS: Albumin 2.7 G/DL (3.4-5.0); Bilirubin,Total 2.2 MG/DL (0.2-1.0); Osmolality,Calculated 281.4 MOS/KG (273-304); Total Protein 4.8 G/DL (6.4-8.3)
[2019-06-15] MEDS ORDERED: ERGOCALCIFEROL 50,000 UNIT CAPSULE PO SCH (07:23)
[2019-06-15] MEDS ORDERED: SODIUM CHLORIDE 0.9% 1,000 ML IV PRN (07:57)
[2019-06-15] MEDS: ASPIRIN EC 81 MG TABLET PO SCH (08:39)
[2019-06-15] MEDS: traZODone 50 MG TABLET PO SCH ×2 (08:39→13:36)
[2019-06-15] MEDS: METOPROLOL SUCCINATE XL 25 MG TABLET PO SCH (08:39)
[2019-06-15] MEDS: TAMSULOSIN 0.4 MG CAPSULE PO SCH ×2 (08:40→21:16)
[2019-06-15] MEDS: SACUBITRIL/VALSARTAN 49-51 MG TABLET PO SCH ×2 (08:40→21:16)
[2019-06-15] MEDS: TICAGRELOR 90 MG TABLET PO SCH ×2 (08:40→21:17)
[2019-06-15] MEDS: DILTIAZEM CD 120 MG CAPSULE PO SCH (08:40)
[2019-06-15] MEDS: ZIPRASIDONE 20 MG CAPSULE PO SCH ×2 (08:41→21:17)
[2019-06-15] MEDS: BENZTROPINE 0.5 MG TABLET PO SCH ×2 (08:41→21:17)
[2019-06-15] MEDS: PANTOPRAZOLE 40 MG TABLET PO SCH (08:41)
[2019-06-15] MEDS: DOCUSATE SODIUM 100 MG CAPSULE PO SCH ×2 (08:41→21:17)
[2019-06-15] MEDS: CYANOCOBALAMIN 500 MCG TABLET PO SCH (08:41)
[2019-06-15] MEDS: buPROPion SR 150 MG TABLET PO SCH (08:43)
[2019-06-15] MEDS: LIDOCAINE 5% PATCH TRANSDERM SCH (08:43)
[2019-06-15] MEDS: FERROUS SULFATE 325 MG TABLET PO SCH (09:05)
[2019-06-15] MEDS: ACETAMINOPHEN 325 MG TABLET PO PRN (09:05)
[2019-06-15] MEDS: traMADol 50 MG TABLET PO PRN (16:37)
[2019-06-15 19:51] LABS: Hematocrit 34.4 VOL% (42.0-52.0); Hemoglobin 11.3 GM/DL (14.0-18.0)
[2019-06-15] MEDS: MORPHINE 4 MG/1 ML VIAL IV PRN (21:32)
[2019-06-16] MEDS: LEVOTHYROXINE 50 MCG TABLET PO SCH (07:32)
[2019-06-16] MEDS: MORPHINE 4 MG/1 ML VIAL IV PRN (07:40)
[2019-06-16] MEDS: SODIUM CHLORIDE 0.9% 1,000 ML IV SCH (08:31)
[2019-06-16] MEDS: buPROPion SR 150 MG TABLET PO SCH (09:56)
[2019-06-16] MEDS: DOCUSATE SODIUM 100 MG CAPSULE PO SCH (09:56)
[2019-06-16] MEDS: TICAGRELOR 90 MG TABLET PO SCH (09:56)
[2019-06-16] MEDS: ZIPRASIDONE 20 MG CAPSULE PO SCH (09:56)
[2019-06-16] MEDS: SACUBITRIL/VALSARTAN 49-51 MG TABLET PO SCH (09:57)
[2019-06-16] MEDS: CYANOCOBALAMIN 500 MCG TABLET PO SCH (09:57)
[2019-06-16] MEDS: ASPIRIN EC 81 MG TABLET PO SCH (09:58)
[2019-06-16] MEDS: METOPROLOL SUCCINATE XL 25 MG TABLET PO SCH (09:58)
[2019-06-16] MEDS: traZODone 50 MG TABLET PO SCH ×2 (09:58→12:20)
[2019-06-16] MEDS: BENZTROPINE 0.5 MG TABLET PO SCH (09:58)
[2019-06-16] MEDS: FERROUS SULFATE 325 MG TABLET PO SCH (09:58)
[2019-06-16] MEDS: ALBUMIN 25% 25 GM in PREMIX 1 EACH IV SCH (09:58)
[2019-06-16] MEDS: DILTIAZEM CD 120 MG CAPSULE PO SCH (09:58)
[2019-06-16] MEDS: TAMSULOSIN 0.4 MG CAPSULE PO SCH (09:58)
[2019-06-16] MEDS: PANTOPRAZOLE 40 MG TABLET PO SCH (09:58)
[2019-06-16] MEDS: LIDOCAINE 5% PATCH TRANSDERM SCH (12:20)
[2019-06-16] MEDS: traMADol 50 MG TABLET PO PRN (12:20)
[2019-06-16 13:08] VITALS: BP 145/84
== END 2019-06-16 12:35 | DRG 480 ==
LOC: EDBD → EDUNIT# → N.ED 11:47 → N.EDINP 13:34 → N.3E 14:06 → N.CC 06-08 13:53 → N.3E 06-10 15:11
PROVIDERS: ADMIT Family Medicine; ATTEND Family Medicine

== ENCOUNTER 2019-06-22 09:44 | Inpatient (IN) ==
[2019-06-22] MEDS ORDERED: cefTRIAXone 1,000 MG in SODIUM CHLORIDE 0.9% 100 ML IV STA (10:49)
[2019-06-22] MEDS ORDERED: AZITHROMYCIN INJ 500 MG in SODIUM CHLORIDE 0.9% 250 ML IV STA (10:49)
[2019-06-22 10:56] LABS: Albumin 2.7 G/DL (3.4-5.0); Bilirubin,Total 2.1 MG/DL (0.2-1.0); Calcium 8.5 MG/DL (8.5-10.1); Osmolality,Calculated 290.1 MOS/KG (273-304); Total Protein 5.8 G/DL (6.4-8.3)
[2019-06-22] MEDS ORDERED: cefTRIAXone 1,000 MG in SYRINGE 1 EACH IV STA (11:00)
[2019-06-22 11:09] LABS: Apearance,Urine Slightly Hazy (Clear); Bacteria,Urine Many /HPF (Few); Bilirubin,Urine Negative (Negative); Blood, Urine Moderate mg/dL (Negative); Glucose,Urine (UA) Negative (Negative); Ketones,Urine Negative (Negative); Mucus,Urine Few /LPF (Occasional); Nitrite,Urine Negative (Negative); Protein,Urine 30 MG/DL; RBC,Urine 4 /HPF (0-4); Urine Color Amber (Yellow); WBC,Urine 13 /HPF (0-6)
[2019-06-22] MEDS ORDERED: SODIUM CHLORIDE 0.9% 1,000 ML IV STA (11:14)
[2019-06-22 11:45] LABS: Basophils % 0.2 % (0.0-0.8); Eosinophils % 0.2 % (0.00-10.9); Hematocrit 41.6 VOL% (42.0-52.0); Hemoglobin 13.6 GM/DL (14.0-18.0); Immature Granulocytes % 0.9 %; Immature Granulocytes Absolute 0.11 #; Lymphocytes # 0.9 10*3/uL (1.4-4.0); Lymphocytes % 6.8 % (21.2-54.2); Mean Corpuscular HGB Conc 32.7 GM/DL (32-36); Mean Corpuscular Volume 92.9 FL (87-102); Monocytes % 5.9 % (1.7-12.7); Platelet Count 167 T/CUMM (130-400); Red Blood Count 4.48 MC/CUMM (3.8-5.5); Red Cell Distribution Width 14.5 % (9.3-17.3); White Blood Count 12.9 T/CUMM (4-12)
[2019-06-22] MEDS ORDERED: ONDANSETRON 4 MG/2 ML VIAL IV PRN (12:00)
[2019-06-22] MEDS ORDERED: MAGNESIUM HYDROXIDE SUSP 30 ML UDCUP PO PRN (14:57)
[2019-06-22] MEDS ORDERED: LACTULOSE 20 GM/30 ML UDCUP PO PRN (14:57)
[2019-06-22] MEDS ORDERED: NITROGLYCERIN SL 0.4 MG TABLET SL PRN (14:57)
[2019-06-22] MEDS: SODIUM CHLORIDE 0.9% 1,000 ML IV SCH (15:05)
[2019-06-22] MEDS: VANCOMYCIN INJ 1,000 MG in SODIUM CHLORIDE 0.9% 250 ML IV SCH (17:38)
[2019-06-22] MEDS: TICAGRELOR 90 MG TABLET PO SCH (20:48)
[2019-06-22] MEDS: SACUBITRIL/VALSARTAN 49-51 MG TABLET PO SCH (20:49)
[2019-06-22] MEDS: LOSARTAN 50 MG TABLET PO SCH (20:49)
[2019-06-22] MEDS: ZIPRASIDONE 20 MG CAPSULE PO SCH (20:49)
[2019-06-22] MEDS: TAMSULOSIN 0.4 MG CAPSULE PO SCH (20:50)
[2019-06-22] MEDS: BENZTROPINE 0.5 MG TABLET PO SCH (20:50)
[2019-06-22] MEDS: DOCUSATE SODIUM 100 MG CAPSULE PO SCH (20:50)
[2019-06-22] MEDS ORDERED: ZIPRASIDONE 20 MG CAPSULE PO SCH (21:00)
[2019-06-23] MEDS: SODIUM CHLORIDE 0.9% 1,000 ML IV SCH ×3 (02:41→23:05)
[2019-06-23] MEDS: LEVOTHYROXINE 50 MCG TABLET PO SCH (05:49)
[2019-06-23] MEDS ORDERED: traZODone 50 MG TABLET PO SCH (09:00)
[2019-06-23] MEDS: LINACLOTIDE 145 MCG CAPSULE PO SCH (09:24)
[2019-06-23] MEDS: FERROUS SULFATE 325 MG TABLET PO SCH (09:24)
[2019-06-23] MEDS: DOCUSATE SODIUM 100 MG CAPSULE PO SCH ×2 (09:25→20:30)
[2019-06-23] MEDS: CYANOCOBALAMIN 500 MCG TABLET PO SCH (09:25)
[2019-06-23] MEDS: ASPIRIN EC 81 MG TABLET PO SCH (09:25)
[2019-06-23] MEDS: TAMSULOSIN 0.4 MG CAPSULE PO SCH ×2 (09:25→20:41)
[2019-06-23] MEDS: TICAGRELOR 90 MG TABLET PO SCH ×2 (09:25→20:30)
[2019-06-23] MEDS: PANTOPRAZOLE 40 MG TABLET PO SCH (09:25)
[2019-06-23] MEDS: ROSUVASTATIN 10 MG TABLET PO SCH (09:25)
[2019-06-23] MEDS: LOSARTAN 50 MG TABLET PO SCH ×2 (09:25→20:30)
[2019-06-23] MEDS: BENZTROPINE 0.5 MG TABLET PO SCH ×2 (09:25→20:29)
[2019-06-23] MEDS: SACUBITRIL/VALSARTAN 49-51 MG TABLET PO SCH ×2 (09:25→20:30)
[2019-06-23] MEDS: METOPROLOL SUCCINATE XL 25 MG TABLET PO SCH (09:25)
[2019-06-23] MEDS: cefTRIAXone 1,000 MG in SYRINGE 1 EACH IV SCH (09:26)
[2019-06-23] MEDS: ZIPRASIDONE 20 MG CAPSULE PO SCH ×2 (09:29→20:29)
[2019-06-23] MEDS: DILTIAZEM CD 120 MG CAPSULE PO SCH (09:29)
[2019-06-23] MEDS: VANCOMYCIN INJ 1,000 MG in SODIUM CHLORIDE 0.9% 250 ML IV SCH (09:30)
[2019-06-23] MEDS: LIDOCAINE 5% PATCH TRANSDERM SCH (10:23)
[2019-06-24] MEDS: VANCOMYCIN INJ 1,000 MG in SODIUM CHLORIDE 0.9% 250 ML IV SCH ×2 (04:05→22:46)
[2019-06-24] MEDS: LEVOTHYROXINE 50 MCG TABLET PO SCH (05:30)
[2019-06-24 05:36] LABS: Basophils % 0.5 % (0.0-0.8); Eosinophils # 0.3 10*3/uL (0.0-0.87); Eosinophils % 3.9 % (0.00-10.9); Hematocrit 35.5 VOL% (42.0-52.0); Hemoglobin 11.5 GM/DL (14.0-18.0); Immature Granulocytes % 1.2 %; Lymphocytes % 12.3 % (21.2-54.2); Mean Corpuscular HGB Conc 32.4 GM/DL (32-36); Mean Corpuscular Volume 92.9 FL (87-102); Mean Platelet Volume 12.1 FL (9.6-12.0); Monocytes % 7.1 % (1.7-12.7); Platelet Count 146 T/CUMM (130-400); Red Blood Count 3.82 MC/CUMM (3.8-5.5); Red Cell Distribution Width 14.4 % (9.3-17.3); White Blood Count 8.5 T/CUMM (4-12)
[2019-06-24 05:56] LABS: Calcium 7.8 MG/DL (8.5-10.1); Osmolality,Calculated 284.1 MOS/KG (273-304)
[2019-06-24] MEDS: SODIUM CHLORIDE 0.9% 1,000 ML IV SCH (09:01)
[2019-06-24] MEDS: METOPROLOL SUCCINATE XL 25 MG TABLET PO SCH (09:03)
[2019-06-24] MEDS: DILTIAZEM CD 120 MG CAPSULE PO SCH (09:03)
[2019-06-24] MEDS: ASPIRIN EC 81 MG TABLET PO SCH (09:03)
[2019-06-24] MEDS: BENZTROPINE 0.5 MG TABLET PO SCH ×2 (09:03→20:49)
[2019-06-24] MEDS: CYANOCOBALAMIN 500 MCG TABLET PO SCH (09:03)
[2019-06-24] MEDS: POTASSIUM CHLORIDE 20 MEQ/15 ML UDCUP PO SCH ×2 (09:04→20:59)
[2019-06-24] MEDS: ZIPRASIDONE 20 MG CAPSULE PO SCH ×2 (09:04→20:48)
[2019-06-24] MEDS: DEXT 5% NACL 0.45% KCL 40 MEQ 40 MEQ/1,000 ML BAG IV SCH (09:04)
[2019-06-24] MEDS: TICAGRELOR 90 MG TABLET PO SCH ×2 (09:04→20:50)
[2019-06-24] MEDS: FERROUS SULFATE 325 MG TABLET PO SCH (09:04)
[2019-06-24] MEDS: PANTOPRAZOLE 40 MG TABLET PO SCH (09:04)
[2019-06-24] MEDS: TAMSULOSIN 0.4 MG CAPSULE PO SCH ×2 (09:04→20:49)
[2019-06-24] MEDS: LOSARTAN 50 MG TABLET PO SCH ×2 (09:04→20:50)
[2019-06-24] MEDS: DOCUSATE SODIUM 100 MG CAPSULE PO SCH ×2 (09:04→20:49)
[2019-06-24] MEDS: LIDOCAINE 5% PATCH TRANSDERM SCH (09:07)
[2019-06-24] MEDS: LINACLOTIDE 145 MCG CAPSULE PO SCH (09:08)
[2019-06-24] MEDS: ACETAMINOPHEN 325 MG TABLET PO PRN (09:13)
[2019-06-24] MEDS: SACUBITRIL/VALSARTAN 49-51 MG TABLET PO SCH ×2 (09:14→20:49)
[2019-06-24] MEDS: cefTRIAXone 1,000 MG in SYRINGE 1 EACH IV SCH (09:15)
[2019-06-24] MEDS: CHLORHEXIDINE 0.12% ORAL RINSE 60 ML BOTTLE SWISH/SPIT SCH (20:50)
[2019-06-25] MEDS: DEXT 5% NACL 0.45% KCL 40 MEQ 40 MEQ/1,000 ML BAG IV SCH ×3 (02:39→20:17)
[2019-06-25] MEDS: ACETAMINOPHEN 325 MG TABLET PO PRN (04:08)
[2019-06-25] MEDS: LEVOTHYROXINE 50 MCG TABLET PO SCH (05:46)
[2019-06-25 06:38] LABS: Calcium 7.9 MG/DL (8.5-10.1); Osmolality,Calculated 275.8 MOS/KG (273-304)
[2019-06-25] MEDS: SACUBITRIL/VALSARTAN 49-51 MG TABLET PO SCH ×2 (09:22→23:03)
[2019-06-25] MEDS: CYANOCOBALAMIN 500 MCG TABLET PO SCH (09:22)
[2019-06-25] MEDS: LINACLOTIDE 145 MCG CAPSULE PO SCH (09:22)
[2019-06-25] MEDS: LOSARTAN 50 MG TABLET PO SCH ×2 (09:22→23:04)
[2019-06-25] MEDS: FERROUS SULFATE 325 MG TABLET PO SCH (09:23)
[2019-06-25] MEDS: ROSUVASTATIN 10 MG TABLET PO SCH (09:23)
[2019-06-25] MEDS: PANTOPRAZOLE 40 MG TABLET PO SCH (09:23)
[2019-06-25] MEDS: DOCUSATE SODIUM 100 MG CAPSULE PO SCH ×2 (09:23→23:04)
[2019-06-25] MEDS: DILTIAZEM CD 120 MG CAPSULE PO SCH (09:23)
[2019-06-25] MEDS: TAMSULOSIN 0.4 MG CAPSULE PO SCH ×2 (09:23→23:04)
[2019-06-25] MEDS: ASPIRIN EC 81 MG TABLET PO SCH (09:23)
[2019-06-25] MEDS: TICAGRELOR 90 MG TABLET PO SCH ×2 (09:23→23:04)
[2019-06-25] MEDS: ZIPRASIDONE 20 MG CAPSULE PO SCH ×2 (09:23→23:07)
[2019-06-25] MEDS: BENZTROPINE 0.5 MG TABLET PO SCH ×2 (09:23→23:03)
[2019-06-25] MEDS: METOPROLOL SUCCINATE XL 25 MG TABLET PO SCH (09:23)
[2019-06-25] MEDS: CHLORHEXIDINE 0.12% ORAL RINSE 60 ML BOTTLE SWISH/SPIT SCH ×2 (09:32→23:08)
[2019-06-25] MEDS: LIDOCAINE 5% PATCH TRANSDERM SCH (09:32)
[2019-06-25] MEDS: POTASSIUM CHLORIDE 20 MEQ/15 ML UDCUP PO SCH ×2 (09:32→23:03)
[2019-06-25] MEDS: cefTRIAXone 1,000 MG in SYRINGE 1 EACH IV SCH (09:33)
[2019-06-25] MEDS: VANCOMYCIN INJ 1,000 MG in SODIUM CHLORIDE 0.9% 250 ML IV SCH ×2 (10:10→23:00)
[2019-06-26] MEDS: DEXT 5% NACL 0.45% KCL 40 MEQ 40 MEQ/1,000 ML BAG IV SCH ×3 (06:13→19:00)
[2019-06-26] MEDS: LEVOTHYROXINE 50 MCG TABLET PO SCH (06:18)
[2019-06-26] MEDS: LINACLOTIDE 145 MCG CAPSULE PO SCH (09:02)
[2019-06-26] MEDS: PANTOPRAZOLE 40 MG TABLET PO SCH (09:02)
[2019-06-26] MEDS: CYANOCOBALAMIN 500 MCG TABLET PO SCH (09:02)
[2019-06-26] MEDS: TICAGRELOR 90 MG TABLET PO SCH ×2 (09:02→22:51)
[2019-06-26] MEDS: DOCUSATE SODIUM 100 MG CAPSULE PO SCH ×2 (09:02→22:51)
[2019-06-26] MEDS: TAMSULOSIN 0.4 MG CAPSULE PO SCH ×2 (09:02→22:51)
[2019-06-26] MEDS: METOPROLOL SUCCINATE XL 25 MG TABLET PO SCH (09:02)
[2019-06-26] MEDS: DILTIAZEM CD 120 MG CAPSULE PO SCH (09:03)
[2019-06-26] MEDS: cefTRIAXone 1,000 MG in SYRINGE 1 EACH IV SCH (09:03)
[2019-06-26] MEDS: ZIPRASIDONE 20 MG CAPSULE PO SCH ×2 (09:03→22:51)
[2019-06-26] MEDS: BENZTROPINE 0.5 MG TABLET PO SCH ×2 (09:03→22:51)
[2019-06-26] MEDS: POTASSIUM CHLORIDE 20 MEQ/15 ML UDCUP PO SCH ×2 (09:03→22:54)
[2019-06-26] MEDS: LOSARTAN 50 MG TABLET PO SCH ×2 (09:03→22:50)
[2019-06-26] MEDS: CHLORHEXIDINE 0.12% ORAL RINSE 60 ML BOTTLE SWISH/SPIT SCH ×2 (09:03→22:55)
[2019-06-26] MEDS: LIDOCAINE 5% PATCH TRANSDERM SCH (09:03)
[2019-06-26] MEDS: ASPIRIN EC 81 MG TABLET PO SCH (09:03)
[2019-06-26] MEDS: FERROUS SULFATE 325 MG TABLET PO SCH (09:03)
[2019-06-26] MEDS: SACUBITRIL/VALSARTAN 49-51 MG TABLET PO SCH ×2 (09:04→22:50)
[2019-06-26] MEDS: VANCOMYCIN INJ 1,000 MG in SODIUM CHLORIDE 0.9% 250 ML IV SCH ×2 (11:22→22:43)
[2019-06-27 05:54] LABS: Basophils % 0.5 % (0.0-0.8); Eosinophils # 0.2 10*3/uL (0.0-0.87); Eosinophils % 2.3 % (0.00-10.9); Hematocrit 39.6 VOL% (42.0-52.0); Hemoglobin 12.8 GM/DL (14.0-18.0); Immature Granulocytes Absolute 0.08 #; Lymphocytes # 1.1 10*3/uL (1.4-4.0); Lymphocytes % 13.5 % (21.2-54.2); Mean Corpuscular HGB Conc 32.3 GM/DL (32-36); Mean Corpuscular Volume 94.1 FL (87-102); Mean Platelet Volume 12.5 FL (9.6-12.0); Monocytes % 8.6 % (1.7-12.7); Neutrophils % 74.1 % (38.7-73.9); Platelet Count 169 T/CUMM (130-400); Red Blood Count 4.21 MC/CUMM (3.8-5.5); Red Cell Distribution Width 14.2 % (9.3-17.3); White Blood Count 8.3 T/CUMM (4-12)
[2019-06-27 06:29] LABS: Calcium 8.5 MG/DL (8.5-10.1); Osmolality,Calculated 274.5 MOS/KG (273-304)
[2019-06-27] MEDS: LEVOTHYROXINE 50 MCG TABLET PO SCH (07:15)
[2019-06-27] MEDS: DEXT 5% NACL 0.45% KCL 40 MEQ 40 MEQ/1,000 ML BAG IV SCH ×2 (07:16→20:35)
[2019-06-27] MEDS ORDERED: MAGNESIUM SULF RIDER 2 GM in PREMIX 1 EACH IV ONE (08:10)
[2019-06-27] MEDS: CHLORHEXIDINE 0.12% ORAL RINSE 60 ML BOTTLE SWISH/SPIT SCH ×2 (08:36→20:42)
[2019-06-27] MEDS: LIDOCAINE 5% PATCH TRANSDERM SCH (08:36)
[2019-06-27] MEDS: cefTRIAXone 1,000 MG in SYRINGE 1 EACH IV SCH (08:36)
[2019-06-27] MEDS: POTASSIUM CHLORIDE 20 MEQ/15 ML UDCUP PO SCH ×2 (08:36→20:36)
[2019-06-27] MEDS: PANTOPRAZOLE 40 MG TABLET PO SCH (08:37)
[2019-06-27] MEDS: LINACLOTIDE 145 MCG CAPSULE PO SCH (08:37)
[2019-06-27] MEDS: SACUBITRIL/VALSARTAN 49-51 MG TABLET PO SCH ×2 (08:37→20:37)
[2019-06-27] MEDS: ZIPRASIDONE 20 MG CAPSULE PO SCH ×2 (08:37→20:36)
[2019-06-27] MEDS: DOCUSATE SODIUM 100 MG CAPSULE PO SCH ×2 (08:37→20:36)
[2019-06-27] MEDS: CYANOCOBALAMIN 500 MCG TABLET PO SCH (08:37)
[2019-06-27] MEDS: BENZTROPINE 0.5 MG TABLET PO SCH ×2 (08:38→20:37)
[2019-06-27] MEDS: TAMSULOSIN 0.4 MG CAPSULE PO SCH ×2 (08:38→20:36)
[2019-06-27] MEDS: DILTIAZEM CD 120 MG CAPSULE PO SCH (08:38)
[2019-06-27] MEDS: FERROUS SULFATE 325 MG TABLET PO SCH (08:38)
[2019-06-27] MEDS: TICAGRELOR 90 MG TABLET PO SCH ×2 (08:38→20:36)
[2019-06-27] MEDS: ASPIRIN EC 81 MG TABLET PO SCH (08:38)
[2019-06-27] MEDS: METOPROLOL SUCCINATE XL 25 MG TABLET PO SCH (08:44)
[2019-06-27] MEDS: LOSARTAN 50 MG TABLET PO SCH ×2 (08:44→20:36)
[2019-06-27] MEDS: VANCOMYCIN INJ 1,000 MG in SODIUM CHLORIDE 0.9% 250 ML IV SCH (11:38)
[2019-06-27] MEDS ORDERED: VANCOMYCIN INJ 1,000 MG in SODIUM CHLORIDE 0.9% 250 ML IV SCH (18:00)
[2019-06-28] MEDS: DEXT 5% NACL 0.45% KCL 40 MEQ 40 MEQ/1,000 ML BAG IV SCH ×2 (03:00→10:02)
[2019-06-28 06:04] LABS: Calcium 8.4 MG/DL (8.5-10.1); Osmolality,Calculated 272.8 MOS/KG (273-304)
[2019-06-28] MEDS: LEVOTHYROXINE 50 MCG TABLET PO SCH (07:40)
[2019-06-28] MEDS: LIDOCAINE 5% PATCH TRANSDERM SCH (10:03)
[2019-06-28] MEDS: CHLORHEXIDINE 0.12% ORAL RINSE 60 ML BOTTLE SWISH/SPIT SCH (10:03)
[2019-06-28] MEDS: BENZTROPINE 0.5 MG TABLET PO SCH (10:04)
[2019-06-28] MEDS: ROSUVASTATIN 10 MG TABLET PO SCH (10:05)
[2019-06-28] MEDS: ZIPRASIDONE 20 MG CAPSULE PO SCH (10:05)
[2019-06-28] MEDS: METOPROLOL SUCCINATE XL 25 MG TABLET PO SCH (10:05)
[2019-06-28] MEDS: SACUBITRIL/VALSARTAN 49-51 MG TABLET PO SCH (10:05)
[2019-06-28] MEDS: DILTIAZEM CD 120 MG CAPSULE PO SCH (10:06)
[2019-06-28] MEDS: FERROUS SULFATE 325 MG TABLET PO SCH (10:06)
[2019-06-28] MEDS: ASPIRIN EC 81 MG TABLET PO SCH (10:06)
[2019-06-28] MEDS: TICAGRELOR 90 MG TABLET PO SCH (10:06)
[2019-06-28] MEDS: TAMSULOSIN 0.4 MG CAPSULE PO SCH (10:06)
[2019-06-28] MEDS: LOSARTAN 50 MG TABLET PO SCH (10:07)
[2019-06-28] MEDS: LINACLOTIDE 145 MCG CAPSULE PO SCH (10:07)
[2019-06-28] MEDS: PANTOPRAZOLE 40 MG TABLET PO SCH (10:07)
[2019-06-28] MEDS: DOCUSATE SODIUM 100 MG CAPSULE PO SCH (10:07)
[2019-06-28] MEDS: POTASSIUM CHLORIDE 20 MEQ/15 ML UDCUP PO SCH (10:08)
[2019-06-28] MEDS: cefTRIAXone 1,000 MG in SYRINGE 1 EACH IV SCH (10:08)
[2019-06-28] MEDS: CYANOCOBALAMIN 500 MCG TABLET PO SCH (10:08)
[2019-06-28 12:02] VITALS: BP 113/71
[2019-06-29] MEDS ORDERED: ERGOCALCIFEROL 50,000 UNIT CAPSULE PO SCH (09:00)
== END 2019-06-28 13:55 | DRG 871 ==
LOC: EDBD → EDUNIT# → N.ED 09:44 → N.EDINP 11:59 → N.2E 14:43
PROVIDERS: ADMIT Family Medicine; ATTEND Family Medicine

== ENCOUNTER 2019-07-05 10:27 | Inpatient (IN) ==
[2019-07-05] MEDS ORDERED: ONDANSETRON 4 MG/2 ML VIAL IV STA (11:00)
[2019-07-05] MEDS ORDERED: NITROGLYCERIN 2% OINT 1 INCH/GM PACK TOP STA (11:00)
[2019-07-05] MEDS ORDERED: MORPHINE 4 MG/1 ML VIAL IV STA (11:00)
[2019-07-05] MEDS ORDERED: ASPIRIN 325 MG TABLET PO STA (11:00)
[2019-07-05 11:08] LABS: Basophils % 0.4 % (0.0-0.8); Eosinophils # 0.1 10*3/uL (0.0-0.87); Eosinophils % 0.5 % (0.00-10.9); Hematocrit 40.5 VOL% (42.0-52.0); Hemoglobin 13.2 GM/DL (14.0-18.0); Immature Granulocytes % 0.8 %; Immature Granulocytes Absolute 0.09 #; Lymphocytes # 1.4 10*3/uL (1.4-4.0); Lymphocytes % 12.1 % (21.2-54.2); Mean Corpuscular HGB Conc 32.6 GM/DL (32-36); Mean Corpuscular Volume 93.3 FL (87-102); Mean Platelet Volume 10.8 FL (9.6-12.0); Monocytes % 6.3 % (1.7-12.7); Neutrophils % 79.9 % (38.7-73.9); Platelet Count 275 T/CUMM (130-400); Red Blood Count 4.34 MC/CUMM (3.8-5.5); Red Cell Distribution Width 13.9 % (9.3-17.3); White Blood Count 11.4 T/CUMM (4-12)
[2019-07-05 11:15] LABS: INR 0.9; PT Patient Result 9.6 SECS (9.6-12.2)
[2019-07-05 11:31] LABS: Albumin 2.8 G/DL (3.4-5.0); Bilirubin,Total 1.1 MG/DL (0.2-1.0); Calcium 9.3 MG/DL (8.5-10.1); Osmolality,Calculated 263.9 MOS/KG (273-304)
[2019-07-05] MEDS ORDERED: ENOXAPARIN 60 MG/0.6 ML SYRINGE SUBCUT STA (12:55)
[2019-07-05] MEDS ORDERED: MAGNESIUM HYDROXIDE SUSP 30 ML UDCUP PO PRN (15:30)
[2019-07-05] MEDS ORDERED: DEXTROSE 10% 250 ML BAG IV PRN (15:30)
[2019-07-05] MEDS ORDERED: GLUCAGON 1 MG VIAL IM PRN (15:30)
[2019-07-05] MEDS ORDERED: LACTULOSE 20 GM/30 ML UDCUP PO PRN (15:30)
[2019-07-05] MEDS ORDERED: NITROGLYCERIN SL 0.4 MG TABLET SL PRN (15:30)
[2019-07-05] MEDS: SODIUM CHLORIDE 0.9% 1,000 ML IV SCH (16:44)
[2019-07-05] MEDS: traMADol 50 MG TABLET PO PRN (17:36)
[2019-07-05] MEDS ORDERED: INSULIN REGULAR 100 UNIT/ML SUBCUT SCH (18:00)
[2019-07-05] MEDS: TICAGRELOR 90 MG TABLET PO SCH (20:51)
[2019-07-05] MEDS: SACUBITRIL/VALSARTAN 49-51 MG TABLET PO SCH (20:51)
[2019-07-05] MEDS: DOCUSATE SODIUM 100 MG CAPSULE PO SCH (20:51)
[2019-07-06] MEDS ORDERED: ENOXAPARIN 60 MG/0.6 ML SYRINGE SUBCUT SCH (01:00)
[2019-07-06] MEDS: traMADol 50 MG TABLET PO PRN ×2 (01:01→17:34)
[2019-07-06 05:17] LABS: Basophils % 0.5 % (0.0-0.8); Eosinophils # 0.1 10*3/uL (0.0-0.87); Eosinophils % 0.8 % (0.00-10.9); Hematocrit 33.7 VOL% (42.0-52.0); Hemoglobin 10.9 GM/DL (14.0-18.0); Immature Granulocytes % 0.6 %; Immature Granulocytes Absolute 0.05 #; Lymphocytes # 1.3 10*3/uL (1.4-4.0); Lymphocytes % 15.6 % (21.2-54.2); Mean Corpuscular HGB Conc 32.3 GM/DL (32-36); Mean Corpuscular Volume 94.1 FL (87-102); Mean Platelet Volume 11.1 FL (9.6-12.0); Monocytes % 7.4 % (1.7-12.7); Neutrophils % 75.1 % (38.7-73.9); Platelet Count 216 T/CUMM (130-400); Red Blood Count 3.58 MC/CUMM (3.8-5.5); Red Cell Distribution Width 13.9 % (9.3-17.3); White Blood Count 8.3 T/CUMM (4-12)
[2019-07-06 05:35] LABS: Alanine Aminotransferase < 9 U/L (16-61); Albumin 2.3 G/DL (3.4-5.0); Alkaline Phosphatase 86 U/L (45-117); Aspartate Amino Transferase 13 U/L (0-37); Blood Urea Nitrogen 21 MG/DL (7-18); Calcium 8.8 MG/DL (8.5-10.1); Estimated Glom Filtration Rate 82 ML/MIN; Glucose 110 MG/DL (74-106); HDL Cholesterol 41 MG/DL (40-60); Osmolality,Calculated 269.4 MOS/KG (273-304); Total Protein 5.8 G/DL (6.4-8.3); Triglycerides 119 MG/DL (2-150); VLDL CHOLESTEROL 23.8 MG/DL
[2019-07-06] MEDS: SODIUM CHLORIDE 0.9% 1,000 ML IV SCH (05:58)
[2019-07-06] MEDS: ONDANSETRON 4 MG/2 ML VIAL IV PRN ×3 (06:01→22:45)
[2019-07-06] MEDS: DEXTROSE 5% NACL 0.45% 1,000 ML IV SCH (08:25)
[2019-07-06] MEDS: LINACLOTIDE 145 MCG CAPSULE PO SCH (08:26)
[2019-07-06] MEDS: LIDOCAINE 5% PATCH TRANSDERM SCH (08:26)
[2019-07-06] MEDS: FERROUS SULFATE 325 MG TABLET PO SCH (08:27)
[2019-07-06] MEDS: ASPIRIN EC 81 MG TABLET PO SCH (08:28)
[2019-07-06] MEDS: PANTOPRAZOLE 40 MG TABLET PO SCH (08:28)
[2019-07-06] MEDS: SACUBITRIL/VALSARTAN 49-51 MG TABLET PO SCH ×2 (08:29→20:55)
[2019-07-06] MEDS: RIVAROXABAN 15 MG TABLET PO SCH ×2 (08:29→17:23)
[2019-07-06] MEDS: DOCUSATE SODIUM 100 MG CAPSULE PO SCH ×2 (08:29→20:55)
[2019-07-06] MEDS: TICAGRELOR 90 MG TABLET PO SCH ×2 (08:29→20:55)
[2019-07-06] MEDS ORDERED: DILTIAZEM CD 120 MG CAPSULE PO SCH (09:00)
[2019-07-06] MEDS ORDERED: PANTOPRAZOLE 40 MG VIAL IV SCH (09:00)
[2019-07-06] MEDS: ACETAMINOPHEN 325 MG TABLET PO PRN (09:50)
[2019-07-06] MEDS: MORPHINE 4 MG/1 ML VIAL IV PRN (19:37)
[2019-07-07 04:18] LABS: Basophils % 0.2 % (0.0-0.8); Eosinophils % 0.2 % (0.00-10.9); Hematocrit 35.8 VOL% (42.0-52.0); Hemoglobin 11.8 GM/DL (14.0-18.0); Immature Granulocytes % 0.6 %; Immature Granulocytes Absolute 0.05 #; Lymphocytes # 1.2 10*3/uL (1.4-4.0); Lymphocytes % 13.1 % (21.2-54.2); Mean Corpuscular Volume 92.7 FL (87-102); Mean Platelet Volume 10.1 FL (9.6-12.0); Monocytes % 6.5 % (1.7-12.7); Neutrophils % 79.4 % (38.7-73.9); Platelet Count 242 T/CUMM (130-400); Red Blood Count 3.86 MC/CUMM (3.8-5.5); Red Cell Distribution Width 13.7 % (9.3-17.3); White Blood Count 8.9 T/CUMM (4-12)
[2019-07-07] MEDS: MORPHINE 4 MG/1 ML VIAL IV PRN ×2 (04:21→20:38)
[2019-07-07] MEDS: ONDANSETRON 4 MG/2 ML VIAL IV PRN ×2 (04:22→10:15)
[2019-07-07 08:32] LABS: Albumin 2.7 G/DL (3.4-5.0); Bilirubin,Direct 0.24 MG/DL (0.0-0.20); Bilirubin,Indirect 0.6 MG/DL (0.0-1.0); Bilirubin,Total 0.8 MG/DL (0.2-1.0)
[2019-07-07] MEDS: DEXTROSE 5% NACL 0.45% 1,000 ML IV SCH ×2 (10:22→13:13)
[2019-07-07] MEDS: RIVAROXABAN 15 MG TABLET PO SCH ×2 (10:23→17:44)
[2019-07-07] MEDS: ASPIRIN EC 81 MG TABLET PO SCH (10:23)
[2019-07-07] MEDS: TICAGRELOR 90 MG TABLET PO SCH ×2 (10:23→20:39)
[2019-07-07] MEDS: SACUBITRIL/VALSARTAN 49-51 MG TABLET PO SCH ×2 (10:24→20:47)
[2019-07-07] MEDS: DOCUSATE SODIUM 100 MG CAPSULE PO SCH ×2 (10:24→20:38)
[2019-07-07] MEDS: TAMSULOSIN 0.4 MG CAPSULE PO SCH ×2 (10:25→20:39)
[2019-07-07] MEDS: FERROUS SULFATE 325 MG TABLET PO SCH (10:25)
[2019-07-07] MEDS: CHLORHEXIDINE 0.12% ORAL RINSE 60 ML BOTTLE SWISH/SPIT SCH ×3 (10:27→20:48)
[2019-07-07] MEDS: POTASSIUM CHLORIDE 20 MEQ/15 ML UDCUP PO SCH ×3 (10:27→20:48)
[2019-07-07] MEDS: LINACLOTIDE 145 MCG CAPSULE PO SCH (10:27)
[2019-07-07] MEDS: PANTOPRAZOLE 40 MG TABLET PO SCH (10:28)
[2019-07-07] MEDS: LIDOCAINE 5% PATCH TRANSDERM SCH (10:30)
[2019-07-07] MEDS: CYANOCOBALAMIN 500 MCG TABLET PO SCH (10:30)
[2019-07-07] MEDS: LINEZOLID 600 MG TABLET PO SCH ×2 (10:31→20:48)
[2019-07-07] MEDS ORDERED: ROSUVASTATIN 10 MG TABLET PO SCH (18:00)
[2019-07-08 04:13] LABS: Basophils % 0.1 % (0.0-0.8); Eosinophils % 0.2 % (0.00-10.9); Hemoglobin 11.1 GM/DL (14.0-18.0); Immature Granulocytes % 0.9 %; Immature Granulocytes Absolute 0.07 #; Lymphocytes # 1.3 10*3/uL (1.4-4.0); Lymphocytes % 16.1 % (21.2-54.2); Mean Corpuscular HGB Conc 31.7 GM/DL (32-36); Mean Corpuscular Volume 94.6 FL (87-102); Monocytes % 8.8 % (1.7-12.7); Neutrophils % 73.9 % (38.7-73.9); Platelet Count 226 T/CUMM (130-400); Red Cell Distribution Width 13.7 % (9.3-17.3); White Blood Count 8.1 T/CUMM (4-12)
[2019-07-08 04:48] LABS: Calcium 8.7 MG/DL (8.5-10.1); Osmolality,Calculated 273.5 MOS/KG (273-304)
[2019-07-08] MEDS ORDERED: LEVOTHYROXINE 50 MCG TABLET PO SCH (07:00)
[2019-07-08] MEDS: LINEZOLID 600 MG TABLET PO SCH (08:34)
[2019-07-08] MEDS: PANTOPRAZOLE 40 MG TABLET PO SCH (08:34)
[2019-07-08] MEDS: TICAGRELOR 90 MG TABLET PO SCH (08:34)
[2019-07-08] MEDS: POTASSIUM CHLORIDE 20 MEQ/15 ML UDCUP PO SCH (08:34)
[2019-07-08] MEDS: FERROUS SULFATE 325 MG TABLET PO SCH (08:34)
[2019-07-08] MEDS: ASPIRIN EC 81 MG TABLET PO SCH (08:34)
[2019-07-08] MEDS: TAMSULOSIN 0.4 MG CAPSULE PO SCH (08:34)
[2019-07-08] MEDS: DOCUSATE SODIUM 100 MG CAPSULE PO SCH (08:34)
[2019-07-08] MEDS: RIVAROXABAN 15 MG TABLET PO SCH (08:34)
[2019-07-08] MEDS: CYANOCOBALAMIN 500 MCG TABLET PO SCH (08:34)
[2019-07-08] MEDS: LIDOCAINE 5% PATCH TRANSDERM SCH (08:35)
[2019-07-08 08:39] VITALS: BP 127/71
[2019-07-08] MEDS: LINACLOTIDE 145 MCG CAPSULE PO SCH (08:39)
[2019-07-08] MEDS: SACUBITRIL/VALSARTAN 49-51 MG TABLET PO SCH (08:39)
[2019-07-08] MEDS: DEXTROSE 5% NACL 0.45% 1,000 ML IV SCH (08:40)
[2019-07-08] MEDS: CHLORHEXIDINE 0.12% ORAL RINSE 60 ML BOTTLE SWISH/SPIT SCH (08:40)
[2019-07-08] MEDS: ACETAMINOPHEN 325 MG TABLET PO PRN (10:25)
[2019-07-13] MEDS ORDERED: ERGOCALCIFEROL 50,000 UNIT CAPSULE PO SCH (08:05)
== END 2019-07-08 10:56 | DRG 176 ==
LOC: EDUNIT# → N.ED 10:27 → N.EDINP 13:01 → N.TELES 14:52
PROVIDERS: ADMIT Family Medicine; ATTEND Family Medicine

== ENCOUNTER 2019-07-16 13:23 | Observation (INO) ==
[2019-07-16] MEDS ORDERED: ASPIRIN 325 MG TABLET PO STA (13:49)
[2019-07-16] MEDS ORDERED: ONDANSETRON 4 MG/2 ML VIAL IV STA (13:49)
[2019-07-16] MEDS ORDERED: KETOROLAC 30 MG/1 ML VIAL IV STA (13:49)
[2019-07-16] MEDS ORDERED: ORPHENADRINE 60 MG/2 ML VIAL IV STA (13:49)
[2019-07-16 15:05] LABS: Basophils % 0.5 % (0.0-0.8); Eosinophils # 0.1 10*3/uL (0.0-0.87); Hematocrit 35.3 VOL% (42.0-52.0); Hemoglobin 11.5 GM/DL (14.0-18.0); Immature Granulocytes % 1.4 %; Immature Granulocytes Absolute 0.12 #; Lymphocytes # 1.9 10*3/uL (1.4-4.0); Lymphocytes % 21.1 % (21.2-54.2); Mean Corpuscular HGB Conc 32.6 GM/DL (32-36); Mean Corpuscular Volume 94.9 FL (87-102); Mean Platelet Volume 10.2 FL (9.6-12.0); Monocytes % 7.4 % (1.7-12.7); Neutrophils % 68.6 % (38.7-73.9); Platelet Count 233 T/CUMM (130-400); Red Blood Count 3.72 MC/CUMM (3.8-5.5); Red Cell Distribution Width 15.2 % (9.3-17.3); White Blood Count 8.9 T/CUMM (4-12)
[2019-07-16 15:15] LABS: INR 1.1; PT Patient Result 11.8 SECS (9.6-12.2); Partial Thromboplastin Time 29.9 SECS (20.8-36.0)
[2019-07-16 15:35] LABS: Alanine Aminotransferase 17 U/L (16-61); Albumin 3.1 G/DL (3.4-5.0); Alkaline Phosphatase 79 U/L (45-117); Aspartate Amino Transferase 18 U/L (0-37); Blood Urea Nitrogen 26 MG/DL (7-18); Calcium 9.6 MG/DL (8.5-10.1); Estimated Glom Filtration Rate 62 ML/MIN; Glucose 113 MG/DL (74-106); Total Protein 6.6 G/DL (6.4-8.3)
[2019-07-16 15:36] LABS: Troponin I 0.053 NG/ML (0.00-0.045)
[2019-07-16] MEDS ORDERED: NITROGLYCERIN 2% OINT 1 INCH/GM PACK TOP STA (16:00)
[2019-07-16] MEDS ORDERED: ONDANSETRON 4 MG/2 ML VIAL IV PRN (16:41)
[2019-07-16] MEDS ORDERED: ROSUVASTATIN 10 MG TABLET PO SCH (18:35)
[2019-07-16] MEDS ORDERED: NITROGLYCERIN SL 0.4 MG TABLET SL PRN (18:35)
[2019-07-16] MEDS ORDERED: MAGNESIUM HYDROXIDE SUSP 30 ML UDCUP PO PRN (18:35)
[2019-07-16] MEDS ORDERED: LACTULOSE 20 GM/30 ML UDCUP PO PRN (18:35)
[2019-07-16] MEDS: NITROGLYCERIN 2% OINT 1 INCH/GM PACK TOP SCH (19:11)
[2019-07-16] MEDS: DOCUSATE SODIUM 100 MG CAPSULE PO SCH (21:48)
[2019-07-16] MEDS: TAMSULOSIN 0.4 MG CAPSULE PO SCH (21:48)
[2019-07-16] MEDS: TICAGRELOR 90 MG TABLET PO SCH (21:48)
[2019-07-16] MEDS: BENZTROPINE 0.5 MG TABLET PO SCH (21:48)
[2019-07-16] MEDS: SACUBITRIL/VALSARTAN 49-51 MG TABLET PO SCH (21:48)
[2019-07-16] MEDS: POTASSIUM CHLORIDE 20 MEQ/15 ML UDCUP PO SCH (21:48)
[2019-07-16] MEDS: LINEZOLID 600 MG TABLET PO SCH (21:57)
[2019-07-17] MEDS: NITROGLYCERIN 2% OINT 1 INCH/GM PACK TOP SCH ×4 (00:43→17:56)
[2019-07-17] MEDS: traMADol 50 MG TABLET PO PRN ×3 (00:44→17:57)
[2019-07-17] MEDS: LEVOTHYROXINE 50 MCG TABLET PO SCH (06:08)
[2019-07-17 06:39] LABS: Blood Urea Nitrogen 34 MG/DL (7-18); Calcium 8.6 MG/DL (8.5-10.1); Estimated Glom Filtration Rate 59 ML/MIN; Glucose 114 MG/DL (74-106); Osmolality,Calculated 281.8 MOS/KG (273-304)
[2019-07-17 06:41] LABS: Troponin I 0.073 NG/ML (0.00-0.045)
[2019-07-17] MEDS: LIDOCAINE 5% PATCH TRANSDERM SCH (09:19)
[2019-07-17] MEDS: PANTOPRAZOLE 40 MG TABLET PO SCH (09:20)
[2019-07-17] MEDS: TICAGRELOR 90 MG TABLET PO SCH ×2 (09:20→21:46)
[2019-07-17] MEDS: RIVAROXABAN 20 MG TABLET PO SCH (09:20)
[2019-07-17] MEDS: TAMSULOSIN 0.4 MG CAPSULE PO SCH ×2 (09:20→21:46)
[2019-07-17] MEDS: LINACLOTIDE 145 MCG CAPSULE PO SCH (09:20)
[2019-07-17] MEDS: SACUBITRIL/VALSARTAN 49-51 MG TABLET PO SCH ×2 (09:20→21:46)
[2019-07-17] MEDS: DOCUSATE SODIUM 100 MG CAPSULE PO SCH ×2 (09:20→21:46)
[2019-07-17] MEDS: POTASSIUM CHLORIDE 20 MEQ/15 ML UDCUP PO SCH ×2 (09:20→21:47)
[2019-07-17] MEDS: BENZTROPINE 0.5 MG TABLET PO SCH ×2 (09:20→21:47)
[2019-07-17] MEDS: LINEZOLID 600 MG TABLET PO SCH ×2 (09:23→21:46)
[2019-07-17] MEDS ORDERED: SODIUM CHLORIDE 0.9% 500 ML IV ONE (15:18)
[2019-07-18] MEDS: NITROGLYCERIN 2% OINT 1 INCH/GM PACK TOP SCH ×4 (00:45→18:06)
[2019-07-18 02:15] LABS: Apearance,Urine CLEAR (Clear); Bilirubin,Urine Negative (Negative); Blood, Urine Moderate mg/dL (Negative); Glucose,Urine (UA) 50 mg/dL (Negative); Ketones,Urine Negative (Negative); Mucus,Urine Few /LPF (Occasional); Nitrite,Urine Negative (Negative); Protein,Urine Negative; RBC,Urine 61 /HPF (0-4); Urine Color Colorless (Yellow); Urine Specific Gravity 1.005 (1.001-1.035); Urine Urobilinogen < 2.0 EU/DL (0.2-1.0); WBC,Urine 3 /HPF (0-6)
[2019-07-18] MEDS: LEVOTHYROXINE 50 MCG TABLET PO SCH (06:08)
[2019-07-18] MEDS: traMADol 50 MG TABLET PO PRN ×3 (06:20→14:50)
[2019-07-18] MEDS: LINACLOTIDE 145 MCG CAPSULE PO SCH (09:12)
[2019-07-18] MEDS: LIDOCAINE 5% PATCH TRANSDERM SCH (09:12)
[2019-07-18] MEDS: TAMSULOSIN 0.4 MG CAPSULE PO SCH ×2 (09:13→21:46)
[2019-07-18] MEDS: RIVAROXABAN 20 MG TABLET PO SCH (09:13)
[2019-07-18] MEDS: PANTOPRAZOLE 40 MG TABLET PO SCH (09:13)
[2019-07-18] MEDS: POTASSIUM CHLORIDE 20 MEQ/15 ML UDCUP PO SCH ×2 (09:13→21:46)
[2019-07-18] MEDS: LINEZOLID 600 MG TABLET PO SCH ×2 (09:13→21:46)
[2019-07-18] MEDS: TICAGRELOR 90 MG TABLET PO SCH ×2 (09:13→21:46)
[2019-07-18] MEDS: DOCUSATE SODIUM 100 MG CAPSULE PO SCH ×2 (09:14→21:46)
[2019-07-18] MEDS: BENZTROPINE 0.5 MG TABLET PO SCH ×2 (10:27→21:46)
[2019-07-18] MEDS: SACUBITRIL/VALSARTAN 49-51 MG TABLET PO SCH ×2 (10:27→21:46)
[2019-07-18] MEDS ORDERED: METOPROLOL SUCCINATE XL 25 MG TABLET PO ONE (12:50)
[2019-07-19] MEDS: traMADol 50 MG TABLET PO PRN ×2 (00:08→12:27)
[2019-07-19] MEDS: NITROGLYCERIN 2% OINT 1 INCH/GM PACK TOP SCH ×3 (00:08→12:29)
[2019-07-19] MEDS: LEVOTHYROXINE 50 MCG TABLET PO SCH (06:01)
[2019-07-19] MEDS ORDERED: METOPROLOL SUCCINATE XL 25 MG TABLET PO SCH ×2 (09:00)
[2019-07-19] MEDS: SACUBITRIL/VALSARTAN 49-51 MG TABLET PO SCH (09:29)
[2019-07-19] MEDS: RIVAROXABAN 20 MG TABLET PO SCH (09:29)
[2019-07-19] MEDS: LINEZOLID 600 MG TABLET PO SCH (09:29)
[2019-07-19] MEDS: BENZTROPINE 0.5 MG TABLET PO SCH (09:29)
[2019-07-19] MEDS: PANTOPRAZOLE 40 MG TABLET PO SCH (09:30)
[2019-07-19] MEDS: TICAGRELOR 90 MG TABLET PO SCH (09:30)
[2019-07-19] MEDS: DOCUSATE SODIUM 100 MG CAPSULE PO SCH (09:30)
[2019-07-19] MEDS: LINACLOTIDE 145 MCG CAPSULE PO SCH (09:30)
[2019-07-19] MEDS: TAMSULOSIN 0.4 MG CAPSULE PO SCH (09:30)
[2019-07-19] MEDS: LIDOCAINE 5% PATCH TRANSDERM SCH (09:36)
[2019-07-19] MEDS: POTASSIUM CHLORIDE 20 MEQ/15 ML UDCUP PO SCH (09:43)
[2019-07-19] MEDS ORDERED: MENTHOL/ZINC OXIDE OINT 71 GM JAR TOP SCH (11:30)
[2019-07-19] MEDS ORDERED: SKIN HEALING OINT (AQUAPHOR) 50 GM TUBE TOP SCH (11:30)
[2019-07-19 12:00] VITALS: BP 120/69
== END 2019-07-19 13:42 ==
LOC: EDUNIT# → N.ED 13:23 → N.EDINP 13:23 → N.TELEN 18:29
PROVIDERS: ADMIT Family Medicine; ATTEND Family Medicine

== ENCOUNTER 2019-07-27 01:02 | Observation (INO) ==
[2019-07-27 02:32] LABS: Bacteria,Urine Many /HPF (Few); Bilirubin,Urine Negative (Negative); Blood, Urine Large mg/dL (Negative); Glucose,Urine (UA) Negative (Negative); Hyaline Casts,Urine 96 /LPF (0-3); Ketones,Urine 5 mg/dL (Negative); Mucus,Urine Many /LPF (Occasional); Nitrite,Urine Negative (Negative); Protein,Urine 100 MG/DL; RBC,Urine 1675 /HPF (0-4); Urine Color Red (Yellow); Urine Specific Gravity 1.018 (1.001-1.035); Urine Urobilinogen < 2.0 EU/DL (0.2-1.0); WBC,Urine 8828 /HPF (0-6)
[2019-07-27] MEDS ORDERED: DOXYCYCLINE HYCLATE INJ 100 MG in SODIUM CHLORIDE 0.9% 100 ML IV STA (02:45)
[2019-07-27 02:59] LABS: Basophils # 0.1 10*3/uL (0.0-0.2); Basophils % 0.7 % (0.0-0.8); Eosinophils # 0.2 10*3/uL (0.0-0.87); Eosinophils % 2.7 % (0.00-10.9); Hematocrit 31.7 VOL% (42.0-52.0); Immature Granulocytes % 0.9 %; Immature Granulocytes Absolute 0.07 #; Lymphocytes # 2.8 10*3/uL (1.4-4.0); Lymphocytes % 34.7 % (21.2-54.2); Mean Corpuscular HGB Conc 31.5 GM/DL (32-36); Mean Corpuscular Volume 97.8 FL (87-102); Mean Platelet Volume 11.5 FL (9.6-12.0); Monocytes % 9.9 % (1.7-12.7); Neutrophils % 51.1 % (38.7-73.9); Platelet Count 196 T/CUMM (130-400); Red Blood Count 3.24 MC/CUMM (3.8-5.5); Red Cell Distribution Width 15.8 % (9.3-17.3); White Blood Count 8.2 T/CUMM (4-12)
[2019-07-27 03:03] LABS: Bilirubin,Total 0.8 MG/DL (0.2-1.0); Calcium 8.9 MG/DL (8.5-10.1); Osmolality,Calculated 288.5 MOS/KG (273-304); Total Protein 5.7 G/DL (6.4-8.3)
[2019-07-27] MEDS ORDERED: SODIUM CHLORIDE 0.9% 1,000 ML IV STA (03:03)
[2019-07-27] MEDS ORDERED: SULFAMETHOX/TRIMETHOPRIM 800-160 MG TABLET PO STA (03:25)
[2019-07-27] MEDS ORDERED: ONDANSETRON 4 MG/2 ML VIAL IV PRN (03:33)
[2019-07-27] MEDS: SODIUM CHLORIDE 0.9% 1,000 ML IV SCH ×2 (05:31→16:31)
[2019-07-27] MEDS: VANCOMYCIN INJ 1,000 MG in SODIUM CHLORIDE 0.9% 250 ML IV SCH ×2 (05:32→16:31)
[2019-07-27 07:31] LABS: Basophils # 0.1 10*3/uL (0.0-0.2); Basophils % 0.7 % (0.0-0.8); Eosinophils # 0.2 10*3/uL (0.0-0.87); Eosinophils % 2.9 % (0.00-10.9); Hemoglobin 9.6 GM/DL (14.0-18.0); Immature Granulocytes % 0.7 %; Immature Granulocytes Absolute 0.05 #; Lymphocytes # 2.4 10*3/uL (1.4-4.0); Lymphocytes % 32.7 % (21.2-54.2); Mean Corpuscular Volume 97.7 FL (87-102); Mean Platelet Volume 11.2 FL (9.6-12.0); Monocytes % 9.7 % (1.7-12.7); Neutrophils % 53.3 % (38.7-73.9); Platelet Count 178 T/CUMM (130-400); Red Blood Count 3.07 MC/CUMM (3.8-5.5); Red Cell Distribution Width 15.9 % (9.3-17.3); White Blood Count 7.2 T/CUMM (4-12)
[2019-07-27 07:53] LABS: Albumin 2.6 G/DL (3.4-5.0); Bilirubin,Total 0.8 MG/DL (0.2-1.0); Calcium 8.8 MG/DL (8.5-10.1); Osmolality,Calculated 285.7 MOS/KG (273-304); Total Protein 5.5 G/DL (6.4-8.3)
[2019-07-27] MEDS: TAMSULOSIN 0.4 MG CAPSULE PO SCH ×2 (08:53→18:39)
[2019-07-27] MEDS: DOCUSATE SODIUM 100 MG CAPSULE PO SCH ×2 (08:54→21:57)
[2019-07-27] MEDS: METOPROLOL SUCCINATE XL 25 MG TABLET PO SCH (08:54)
[2019-07-27] MEDS: BENZTROPINE 0.5 MG TABLET PO SCH ×2 (08:54→21:57)
[2019-07-27] MEDS: LEVOTHYROXINE 50 MCG TABLET PO SCH (08:54)
[2019-07-27] MEDS: SACUBITRIL/VALSARTAN 49-51 MG TABLET PO SCH ×2 (08:54→21:54)
[2019-07-27] MEDS: FERROUS SULFATE 325 MG TABLET PO SCH (08:54)
[2019-07-27] MEDS: CYANOCOBALAMIN 500 MCG TABLET PO SCH (08:54)
[2019-07-27] MEDS: PANTOPRAZOLE 40 MG TABLET PO SCH (08:55)
[2019-07-27] MEDS ORDERED: ENOXAPARIN 30 MG/0.3 ML SYRINGE SUBCUT SCH (09:00)
[2019-07-27] MEDS ORDERED: TICAGRELOR 90 MG TABLET PO SCH (09:00)
[2019-07-27 09:19] LABS: Troponin I 0.072 NG/ML (0.00-0.045)
[2019-07-27 11:17] LABS: Troponin I 0.083 NG/ML (0.00-0.045)
[2019-07-27] MEDS ORDERED: CLOPIDOGREL 300 MG TABLET PO ONE (16:00)
[2019-07-27] MEDS: traMADol 50 MG TABLET PO PRN (16:30)
[2019-07-27] MEDS: MENTHOL/ZINC OXIDE OINT 71 GM JAR TOP SCH ×2 (16:31→21:57)
[2019-07-27] MEDS ORDERED: RIVAROXABAN 20 MG TABLET PO SCH (18:00)
[2019-07-27] MEDS: APIXABAN 5 MG TABLET PO SCH (21:57)
[2019-07-28] MEDS: SODIUM CHLORIDE 0.9% 1,000 ML IV SCH ×3 (01:26→16:51)
[2019-07-28] MEDS: VANCOMYCIN INJ 1,000 MG in SODIUM CHLORIDE 0.9% 250 ML IV SCH ×2 (06:29→18:36)
[2019-07-28] MEDS: LEVOTHYROXINE 50 MCG TABLET PO SCH (06:29)
[2019-07-28] MEDS ORDERED: ROSUVASTATIN 10 MG TABLET PO SCH (09:00)
[2019-07-28] MEDS: BENZTROPINE 0.5 MG TABLET PO SCH ×2 (09:18→21:48)
[2019-07-28] MEDS: FERROUS SULFATE 325 MG TABLET PO SCH (09:18)
[2019-07-28] MEDS: SACUBITRIL/VALSARTAN 49-51 MG TABLET PO SCH ×2 (09:18→21:48)
[2019-07-28] MEDS: APIXABAN 5 MG TABLET PO SCH ×2 (09:18→21:48)
[2019-07-28] MEDS: CLOPIDOGREL 75 MG TABLET PO SCH (09:18)
[2019-07-28] MEDS: DOCUSATE SODIUM 100 MG CAPSULE PO SCH ×2 (09:18→21:50)
[2019-07-28] MEDS: METOPROLOL SUCCINATE XL 25 MG TABLET PO SCH (09:18)
[2019-07-28] MEDS: PANTOPRAZOLE 40 MG TABLET PO SCH (09:18)
[2019-07-28] MEDS: TAMSULOSIN 0.4 MG CAPSULE PO SCH ×2 (09:19→18:36)
[2019-07-28] MEDS: CYANOCOBALAMIN 500 MCG TABLET PO SCH (09:19)
[2019-07-28] MEDS: MENTHOL/ZINC OXIDE OINT 71 GM JAR TOP SCH ×2 (09:19→21:50)
[2019-07-28 10:51] LABS: Basophils # 0.1 10*3/uL (0.0-0.2); Basophils % 0.9 % (0.0-0.8); Eosinophils # 0.3 10*3/uL (0.0-0.87); Eosinophils % 4.8 % (0.00-10.9); Hematocrit 27.9 VOL% (42.0-52.0); Hemoglobin 8.5 GM/DL (14.0-18.0); Immature Granulocytes % 0.7 %; Immature Granulocytes Absolute 0.04 #; Lymphocytes # 1.5 10*3/uL (1.4-4.0); Lymphocytes % 26.5 % (21.2-54.2); Mean Corpuscular HGB Conc 30.5 GM/DL (32-36); Mean Corpuscular Volume 101.5 FL (87-102); Mean Platelet Volume 11.2 FL (9.6-12.0); Monocytes % 8.1 % (1.7-12.7); Platelet Count 154 T/CUMM (130-400); Red Blood Count 2.75 MC/CUMM (3.8-5.5); Red Cell Distribution Width 15.7 % (9.3-17.3); White Blood Count 5.7 T/CUMM (4-12)
[2019-07-28] MEDS: traMADol 50 MG TABLET PO PRN ×2 (16:04→21:48)
[2019-07-29] MEDS: LEVOTHYROXINE 50 MCG TABLET PO SCH (06:12)
[2019-07-29 06:40] LABS: Basophils % 0.5 % (0.0-0.8); Eosinophils # 0.3 10*3/uL (0.0-0.87); Eosinophils % 5.6 % (0.00-10.9); Hematocrit 26.6 VOL% (42.0-52.0); Hemoglobin 8.5 GM/DL (14.0-18.0); Immature Granulocytes % 0.9 %; Immature Granulocytes Absolute 0.05 #; Lymphocytes # 1.7 10*3/uL (1.4-4.0); Lymphocytes % 29.6 % (21.2-54.2); Mean Corpuscular Volume 98.9 FL (87-102); Mean Platelet Volume 11.5 FL (9.6-12.0); Monocytes % 10.4 % (1.7-12.7); Platelet Count 145 T/CUMM (130-400); Red Blood Count 2.69 MC/CUMM (3.8-5.5); Red Cell Distribution Width 15.3 % (9.3-17.3); White Blood Count 5.8 T/CUMM (4-12)
[2019-07-29 07:05] LABS: Calcium 8.1 MG/DL (8.5-10.1); Osmolality,Calculated 284.3 MOS/KG (273-304)
[2019-07-29] MEDS: SODIUM CHLORIDE 0.9% 1,000 ML IV SCH ×3 (07:19→11:41)
[2019-07-29] MEDS: TAMSULOSIN 0.4 MG CAPSULE PO SCH (09:11)
[2019-07-29] MEDS: SACUBITRIL/VALSARTAN 49-51 MG TABLET PO SCH (09:11)
[2019-07-29] MEDS: CYANOCOBALAMIN 500 MCG TABLET PO SCH (09:11)
[2019-07-29] MEDS: BENZTROPINE 0.5 MG TABLET PO SCH (09:11)
[2019-07-29] MEDS: METOPROLOL SUCCINATE XL 25 MG TABLET PO SCH (09:11)
[2019-07-29] MEDS: APIXABAN 5 MG TABLET PO SCH (09:11)
[2019-07-29] MEDS: FERROUS SULFATE 325 MG TABLET PO SCH (09:11)
[2019-07-29] MEDS: DOCUSATE SODIUM 100 MG CAPSULE PO SCH (09:12)
[2019-07-29] MEDS: PANTOPRAZOLE 40 MG TABLET PO SCH (09:12)
[2019-07-29] MEDS: CLOPIDOGREL 75 MG TABLET PO SCH (09:12)
[2019-07-29] MEDS: VANCOMYCIN INJ 1,000 MG in SODIUM CHLORIDE 0.9% 250 ML IV SCH (09:12)
[2019-07-29] MEDS: MENTHOL/ZINC OXIDE OINT 71 GM JAR TOP SCH (09:12)
[2019-07-29] MEDS: traMADol 50 MG TABLET PO PRN (14:57)
[2019-07-29 16:20] VITALS: BP 118/62
== END 2019-07-29 17:30 ==
LOC: EDBD → EDUNIT# → N.ED 01:02 → N.EDINP 01:02 → SUATTDRO 03:33 → N.EDINP 04:26 → N.2E 04:37
PROVIDERS: ADMIT Internal Medicine; ATTEND Family Medicine

== ENCOUNTER 2019-08-24 20:12 | Observation (INO) ==
[2019-08-24] MEDS ORDERED: SODIUM CHLORIDE 0.9% 1,000 ML IV STA (20:44)
[2019-08-24 20:58] LABS: Basophils % 0.2 % (0.0-0.8); Eosinophils % 0.1 % (0.00-10.9); Hematocrit 30.5 VOL% (42.0-52.0); Hemoglobin 9.2 GM/DL (14.0-18.0); Immature Granulocytes % 1.1 %; Immature Granulocytes Absolute 0.12 #; Lymphocytes # 1.4 10*3/uL (1.4-4.0); Lymphocytes % 13.2 % (21.2-54.2); Mean Corpuscular HGB Conc 30.2 GM/DL (32-36); Mean Corpuscular Volume 102.3 FL (87-102); Mean Platelet Volume 11.8 FL (9.6-12.0); Monocytes % 6.1 % (1.7-12.7); Neutrophils % 79.3 % (38.7-73.9); Platelet Count 192 T/CUMM (130-400); Red Blood Count 2.98 MC/CUMM (3.8-5.5); Red Cell Distribution Width 14.7 % (9.3-17.3); White Blood Count 10.9 T/CUMM (4-12)
[2019-08-24 21:07] LABS: INR 1.1; PT Patient Result 11.9 SECS (9.8-11.9); Partial Thromboplastin Time 34.7 SECS (23.9-33.8)
[2019-08-24 21:12] LABS: Albumin 2.9 G/DL (3.4-5.0); Bilirubin,Total 1.2 MG/DL (0.2-1.0); CKMB % 15.8 %; Calcium 9.4 MG/DL (8.5-10.1); Osmolality,Calculated 297.8 MOS/KG (273-304); Total Protein 5.9 G/DL (6.4-8.3)
[2019-08-24 21:16] LABS: Troponin I 0.069 NG/ML (0.00-0.045)
[2019-08-24 23:09] LABS: Apearance,Urine CLOUDY (Clear); Bacteria,Urine Many /HPF (Few); Bilirubin,Urine Negative (Negative); Blood, Urine Large mg/dL (Negative); Glucose,Urine (UA) Negative (Negative); Ketones,Urine 5 mg/dL (Negative); Mucus,Urine Few /LPF (Occasional); Nitrite,Urine Negative (Negative); Protein,Urine 30 MG/DL; RBC,Urine 28 /HPF (0-4); Urine Color Amber (Yellow); Urine Specific Gravity 1.014 (1.001-1.035); Urine Urobilinogen < 2.0 EU/DL (0.2-1.0); WBC,Urine 16 /HPF (0-6)
[2019-08-24] MEDS ORDERED: DOXYCYCLINE HYCLATE INJ 100 MG in SODIUM CHLORIDE 0.9% 100 ML IV STA (23:29)
[2019-08-24] MEDS ORDERED: ACETAMINOPHEN 325 MG TABLET PO PRN (23:51)
[2019-08-24] MEDS ORDERED: ONDANSETRON 4 MG/2 ML VIAL IV PRN (23:51)
[2019-08-25] MEDS ORDERED: LACTULOSE 20 GM/30 ML UDCUP PO PRN (01:14)
[2019-08-25] MEDS ORDERED: MAGNESIUM HYDROXIDE SUSP 30 ML UDCUP PO PRN (01:14)
[2019-08-25] MEDS: SODIUM CHLORIDE 0.45% 1,000 ML IV SCH ×3 (02:09→22:58)
[2019-08-25] MEDS: LEVOTHYROXINE 50 MCG TABLET PO SCH (06:01)
[2019-08-25 06:11] LABS: CKMB % 13.4 %; Calcium 8.8 MG/DL (8.5-10.1); Osmolality,Calculated 301.6 MOS/KG (273-304)
[2019-08-25 06:12] LABS: Troponin I 0.074 NG/ML (0.00-0.045)
[2019-08-25] MEDS ORDERED: APIXABAN 2.5 MG TABLET PO SCH (09:00)
[2019-08-25] MEDS: LIDOCAINE 5% PATCH TRANSDERM SCH (09:35)
[2019-08-25] MEDS: CHLORHEXIDINE 0.12% ORAL RINSE 60 ML BOTTLE SWISH/SPIT SCH ×2 (09:35→23:01)
[2019-08-25] MEDS: MENTHOL/ZINC OXIDE OINT 71 GM JAR TOP SCH ×2 (09:35→23:00)
[2019-08-25] MEDS: LINACLOTIDE 145 MCG CAPSULE PO SCH (09:37)
[2019-08-25] MEDS: FERROUS SULFATE 325 MG TABLET PO SCH (09:37)
[2019-08-25] MEDS: BENZTROPINE 0.5 MG TABLET PO SCH ×2 (09:38→22:59)
[2019-08-25] MEDS: DOCUSATE SODIUM 100 MG CAPSULE PO SCH ×2 (09:38→22:59)
[2019-08-25 10:41] LABS: Hematocrit 27.8 VOL% (42.0-52.0); Hemoglobin 8.3 GM/DL (14.0-18.0)
[2019-08-25] MEDS ORDERED: ACETAMINOPHEN 325 MG TABLET PO PRN (12:35)
[2019-08-25] MEDS ORDERED: NITROGLYCERIN SL 0.4 MG TABLET SL PRN (12:35)
[2019-08-25] MEDS: DOXYCYCLINE HYCLATE INJ 100 MG in SODIUM CHLORIDE 0.9% 100 ML IV SCH (15:20)
[2019-08-25] MEDS ORDERED: SODIUM CHLORIDE 0.9% 1,000 ML IV ONE (15:46)
[2019-08-25] MEDS: TICAGRELOR 90 MG TABLET PO SCH (22:59)
[2019-08-25] MEDS: NITROFURANTOIN MACRO/MONO 100 MG CAPSULE PO SCH (23:00)
[2019-08-25] MEDS: TAMSULOSIN 0.4 MG CAPSULE PO SCH ×2 (23:00→23:12)
[2019-08-25] MEDS: POTASSIUM CHLORIDE 20 MEQ/15 ML UDCUP PO SCH (23:01)
[2019-08-25] MEDS: SACUBITRIL/VALSARTAN 49-51 MG TABLET PO SCH (23:06)
[2019-08-26] MEDS: DOXYCYCLINE HYCLATE INJ 100 MG in SODIUM CHLORIDE 0.9% 100 ML IV SCH ×2 (00:51→12:38)
[2019-08-26 05:43] LABS: Basophils % 0.1 % (0.0-0.8); Eosinophils # 0.1 10*3/uL (0.0-0.87); Eosinophils % 0.8 % (0.00-10.9); Hematocrit 26.6 VOL% (42.0-52.0); Hemoglobin 8.1 GM/DL (14.0-18.0); Immature Granulocytes Absolute 0.15 #; Lymphocytes # 1.4 10*3/uL (1.4-4.0); Lymphocytes % 18.3 % (21.2-54.2); Mean Corpuscular HGB Conc 30.5 GM/DL (32-36); Mean Corpuscular Volume 101.9 FL (87-102); Mean Platelet Volume 12.1 FL (9.6-12.0); Monocytes % 8.8 % (1.7-12.7); Platelet Count 158 T/CUMM (130-400); Red Blood Count 2.61 MC/CUMM (3.8-5.5); Red Cell Distribution Width 14.6 % (9.3-17.3); White Blood Count 7.6 T/CUMM (4-12)
[2019-08-26] MEDS: SODIUM CHLORIDE 0.45% 1,000 ML IV SCH ×2 (06:22→12:38)
[2019-08-26] MEDS: LEVOTHYROXINE 50 MCG TABLET PO SCH (06:22)
[2019-08-26 08:39] VITALS: BP 114/65
[2019-08-26] MEDS ORDERED: METOPROLOL SUCCINATE XL 25 MG TABLET PO SCH (09:00)
[2019-08-26] MEDS ORDERED: SIMVASTATIN 10 MG TABLET PO SCH (09:00)
[2019-08-26] MEDS: CHLORHEXIDINE 0.12% ORAL RINSE 60 ML BOTTLE SWISH/SPIT SCH (09:25)
[2019-08-26] MEDS: MENTHOL/ZINC OXIDE OINT 71 GM JAR TOP SCH (09:25)
[2019-08-26] MEDS: LIDOCAINE 5% PATCH TRANSDERM SCH (09:25)
[2019-08-26] MEDS: POTASSIUM CHLORIDE 20 MEQ/15 ML UDCUP PO SCH (09:27)
[2019-08-26] MEDS: SACUBITRIL/VALSARTAN 49-51 MG TABLET PO SCH (09:27)
[2019-08-26] MEDS: FERROUS SULFATE 325 MG TABLET PO SCH (09:27)
[2019-08-26] MEDS: DOCUSATE SODIUM 100 MG CAPSULE PO SCH (09:27)
[2019-08-26] MEDS: LINACLOTIDE 145 MCG CAPSULE PO SCH (09:27)
[2019-08-26] MEDS: NITROFURANTOIN MACRO/MONO 100 MG CAPSULE PO SCH (09:28)
[2019-08-26] MEDS: TAMSULOSIN 0.4 MG CAPSULE PO SCH (09:28)
[2019-08-26] MEDS: BENZTROPINE 0.5 MG TABLET PO SCH (09:28)
[2019-08-26] MEDS: TICAGRELOR 90 MG TABLET PO SCH (09:28)
== END 2019-08-26 12:39 ==
LOC: EDBD → EDUNIT# → N.ED 20:12 → N.EDINP 20:12 → N.3E 08-25 00:22
PROVIDERS: ADMIT Family Medicine; ATTEND Family Medicine

== ENCOUNTER 2019-09-14 17:10 | Inpatient (IN) ==
[2019-09-14] MEDS ORDERED: SODIUM CHLORIDE 0.9% 1,000 ML IV STA (17:36)
[2019-09-14 18:28] LABS: Eosinophils % 0.1 % (0.00-10.9); Hematocrit 27.9 VOL% (42.0-52.0); Hemoglobin 8.1 GM/DL (14.0-18.0); Immature Granulocytes % 1.9 %; Immature Granulocytes Absolute 0.17 #; Lymphocytes # 1.1 10*3/uL (1.4-4.0); Lymphocytes % 12.6 % (21.2-54.2); Mean Corpuscular Volume 107.7 FL (87-102); Monocytes % 6.2 % (1.7-12.7); Neutrophils % 79.2 % (38.7-73.9); Platelet Count 57 T/CUMM (130-400); Red Blood Count 2.59 MC/CUMM (3.8-5.5); Red Cell Distribution Width 14.6 % (9.3-17.3); White Blood Count 8.9 T/CUMM (4-12)
[2019-09-14 18:48] LABS: Albumin 2.2 G/DL (3.4-5.0); Bilirubin,Total 0.9 MG/DL (0.2-1.0); Calcium 9.1 MG/DL (8.5-10.1); Osmolality,Calculated 331.4 MOS/KG (273-304); Total Protein 4.8 G/DL (6.4-8.3)
[2019-09-14] MEDS ORDERED: VANCOMYCIN INJ 1,000 MG in SODIUM CHLORIDE 0.9% 250 ML IV STA (18:50)
[2019-09-14] MEDS: SODIUM CHLORIDE 0.9% 1,000 ML IV SCH (19:00)
[2019-09-14 19:06] LABS: Macrocytosis 2+; Polychromasia Few
[2019-09-14 19:07] LABS: Anisocytosis 1+; Burr Cells 1+; Poikilocytosis 1+
[2019-09-14 19:08] LABS: Platelet Estimate Decreased
[2019-09-14] MEDS ORDERED: MORPHINE 4 MG/1 ML VIAL IV PRN (22:12)
[2019-09-14] MEDS ORDERED: VANCOMYCIN INJ 500 MG in SODIUM CHLORIDE 0.9% 100 ML IV PRN (22:12)
[2019-09-14] MEDS ORDERED: ACETAMINOPHEN 325 MG TABLET PO PRN ×2 (22:12)
[2019-09-14] MEDS ORDERED: DOCUSATE SODIUM 100 MG CAPSULE PO SCH (22:12)
[2019-09-14] MEDS ORDERED: ONDANSETRON 4 MG/2 ML VIAL IV PRN (22:12)
[2019-09-14] MEDS ORDERED: traMADol 50 MG TABLET PO PRN (22:12)
[2019-09-14] MEDS ORDERED: LACTULOSE 20 GM/30 ML UDCUP PO PRN (22:12)
[2019-09-14] MEDS ORDERED: SODIUM POLYSTYRENE SULFONATE PO SCH (22:12)
[2019-09-14] MEDS ORDERED: NITROGLYCERIN SL 0.4 MG TABLET SL PRN (22:12)
[2019-09-14] MEDS ORDERED: MAGNESIUM HYDROXIDE SUSP 30 ML UDCUP PO PRN (22:12)
[2019-09-14] MEDS: TAMSULOSIN 0.4 MG CAPSULE PO SCH (23:04)
[2019-09-14] MEDS: DOCUSATE SODIUM 100 MG CAPSULE PO SCH (23:04)
[2019-09-14] MEDS: BENZTROPINE 0.5 MG TABLET PO SCH (23:04)
[2019-09-14] MEDS: APIXABAN 2.5 MG TABLET PO SCH (23:04)
[2019-09-15 03:37] LABS: Apearance,Urine CLEAR (Clear); Bacteria,Urine Many /HPF (Few); Bilirubin,Urine Negative (Negative); Blood, Urine Large mg/dL (Negative); Glucose,Urine (UA) 50 mg/dL (Negative); Ketones,Urine Negative (Negative); Nitrite,Urine Negative (Negative); Protein,Urine Negative; RBC,Urine 19 /HPF (0-4); Urine Color Yellow (Yellow); Urine Specific Gravity 1.005 (1.001-1.035); Urine Urobilinogen < 2.0 EU/DL (0.2-1.0); WBC,Urine 115 /HPF (0-6)
[2019-09-15] MEDS ORDERED: NON-FORMULARY MEDICATION (Omeprazole 40 MG) PO SCH (06:00)
[2019-09-15 06:36] LABS: Basophils % 0.1 % (0.0-0.8); Eosinophils % 0.3 % (0.00-10.9); Hematocrit 29.8 VOL% (42.0-52.0); Hemoglobin 8.5 GM/DL (14.0-18.0); Immature Granulocytes % 1.4 %; Immature Granulocytes Absolute 0.11 #; Lymphocytes # 1.1 10*3/uL (1.4-4.0); Lymphocytes % 14.2 % (21.2-54.2); Mean Corpuscular HGB Conc 28.5 GM/DL (32-36); Mean Corpuscular Volume 111.2 FL (87-102); Monocytes % 7.7 % (1.7-12.7); NRBC # 0.02 10*3/uL; Neutrophils % 76.3 % (38.7-73.9); Platelet Count 52 T/CUMM (130-400); Red Blood Count 2.68 MC/CUMM (3.8-5.5); Red Cell Distribution Width 14.8 % (9.3-17.3); White Blood Count 7.7 T/CUMM (4-12)
[2019-09-15 06:42] LABS: Albumin 2.1 G/DL (3.4-5.0); Bilirubin,Total 0.7 MG/DL (0.2-1.0); Calcium 9.2 MG/DL (8.5-10.1); Osmolality,Calculated 325.6 MOS/KG (273-304); Total Protein 4.9 G/DL (6.4-8.3)
[2019-09-15] MEDS: SODIUM CHLORIDE 0.9% 1,000 ML IV SCH ×4 (06:50→22:25)
[2019-09-15] MEDS: cefTRIAXone 1,000 MG in SYRINGE 1 EACH IV SCH (09:48)
[2019-09-15] MEDS: PANTOPRAZOLE 40 MG VIAL IV SCH (09:52)
[2019-09-15] MEDS: BENZTROPINE 0.5 MG TABLET PO SCH ×2 (10:01→20:42)
[2019-09-15] MEDS: LEVOTHYROXINE 50 MCG TABLET PO SCH (10:01)
[2019-09-15] MEDS: APIXABAN 2.5 MG TABLET PO SCH ×2 (10:01→20:49)
[2019-09-15] MEDS: DOCUSATE SODIUM 100 MG CAPSULE PO SCH ×2 (10:01→20:45)
[2019-09-15] MEDS: SACUBITRIL/VALSARTAN 49-51 MG TABLET PO SCH ×2 (10:02→20:42)
[2019-09-15] MEDS: LINACLOTIDE 145 MCG CAPSULE PO SCH (10:02)
[2019-09-15] MEDS: CHLORHEXIDINE 0.12% ORAL RINSE 60 ML BOTTLE SWISH/SPIT SCH ×2 (10:02→20:42)
[2019-09-15] MEDS: TAMSULOSIN 0.4 MG CAPSULE PO SCH ×2 (10:02→20:46)
[2019-09-15] MEDS: FERROUS SULFATE 325 MG TABLET PO SCH (10:02)
[2019-09-15] MEDS: LIDOCAINE 5% PATCH TRANSDERM SCH (10:02)
[2019-09-15] MEDS: CYANOCOBALAMIN 500 MCG TABLET PO SCH (10:03)
[2019-09-15] MEDS: POTASSIUM CHLORIDE 20 MEQ/15 ML UDCUP PO SCH ×2 (10:03→20:46)
[2019-09-15] MEDS: METOPROLOL SUCCINATE XL 25 MG TABLET PO SCH (10:03)
[2019-09-15] MEDS: SIMVASTATIN 10 MG TABLET PO SCH (20:44)
[2019-09-16 05:33] LABS: Basophils % 0.1 % (0.0-0.8); Eosinophils % 0.3 % (0.00-10.9); Hematocrit 25.3 VOL% (42.0-52.0); Hemoglobin 7.5 GM/DL (14.0-18.0); Immature Granulocytes % 1.2 %; Immature Granulocytes Absolute 0.09 #; Lymphocytes # 1.2 10*3/uL (1.4-4.0); Lymphocytes % 16.2 % (21.2-54.2); Mean Corpuscular HGB Conc 29.6 GM/DL (32-36); Mean Corpuscular Volume 107.2 FL (87-102); Mean Platelet Volume 13.1 FL (9.6-12.0); Monocytes % 7.4 % (1.7-12.7); Neutrophils % 74.8 % (38.7-73.9); Platelet Count 61 T/CUMM (130-400); Red Blood Count 2.36 MC/CUMM (3.8-5.5); White Blood Count 7.5 T/CUMM (4-12)
[2019-09-16] MEDS: SODIUM CHLORIDE 0.9% 1,000 ML IV SCH ×3 (05:47→19:17)
[2019-09-16] MEDS: LEVOTHYROXINE 50 MCG TABLET PO SCH (07:42)
[2019-09-16] MEDS: METOPROLOL SUCCINATE XL 25 MG TABLET PO SCH (07:42)
[2019-09-16] MEDS: DOCUSATE SODIUM 100 MG CAPSULE PO SCH ×2 (07:43→21:18)
[2019-09-16] MEDS: cefTRIAXone 1,000 MG in SYRINGE 1 EACH IV SCH (09:00)
[2019-09-16] MEDS: CHLORHEXIDINE 0.12% ORAL RINSE 60 ML BOTTLE SWISH/SPIT SCH ×2 (10:00→21:19)
[2019-09-16] MEDS: CYANOCOBALAMIN 500 MCG TABLET PO SCH (10:00)
[2019-09-16] MEDS: LINACLOTIDE 145 MCG CAPSULE PO SCH (10:00)
[2019-09-16] MEDS: TAMSULOSIN 0.4 MG CAPSULE PO SCH ×2 (10:00→21:19)
[2019-09-16] MEDS: BENZTROPINE 0.5 MG TABLET PO SCH ×2 (10:00→21:18)
[2019-09-16] MEDS: POTASSIUM CHLORIDE 20 MEQ/15 ML UDCUP PO SCH ×2 (10:00→21:19)
[2019-09-16] MEDS: FERROUS SULFATE 325 MG TABLET PO SCH (10:00)
[2019-09-16] MEDS: SACUBITRIL/VALSARTAN 49-51 MG TABLET PO SCH ×2 (10:00→21:19)
[2019-09-16] MEDS: PANTOPRAZOLE 40 MG VIAL IV SCH (10:02)
[2019-09-16] MEDS ORDERED: VANCOMYCIN INJ 1,000 MG in SODIUM CHLORIDE 0.9% 250 ML IV ONE (11:00)
[2019-09-16] MEDS: LIDOCAINE 5% PATCH TRANSDERM SCH (11:19)
[2019-09-16 11:55] LABS: Hematocrit 24.6 VOL% (42.0-52.0); Hemoglobin 7.5 GM/DL (14.0-18.0)
[2019-09-16] MEDS ORDERED: VANCOMYCIN INJ 1,000 MG in SODIUM CHLORIDE 0.9% 250 ML IV SCH (12:00)
[2019-09-16 17:15] LABS: Hematocrit 26.4 VOL% (42.0-52.0); Hemoglobin 7.5 GM/DL (14.0-18.0)
[2019-09-16] MEDS: SIMVASTATIN 10 MG TABLET PO SCH (21:20)
[2019-09-17] MEDS: SODIUM CHLORIDE 0.9% 1,000 ML IV SCH ×3 (02:26→20:33)
[2019-09-17 05:13] LABS: Eosinophils # 0.1 10*3/uL (0.0-0.87); Eosinophils % 0.7 % (0.00-10.9); Hematocrit 26.3 VOL% (42.0-52.0); Hemoglobin 7.7 GM/DL (14.0-18.0); Immature Granulocytes % 1.3 %; Immature Granulocytes Absolute 0.09 #; Lymphocytes # 1.5 10*3/uL (1.4-4.0); Lymphocytes % 21.4 % (21.2-54.2); Mean Corpuscular HGB Conc 29.3 GM/DL (32-36); Mean Corpuscular Volume 107.3 FL (87-102); Monocytes % 6.4 % (1.7-12.7); NRBC # 0.02 10*3/uL; Neutrophils % 70.2 % (38.7-73.9); Red Blood Count 2.45 MC/CUMM (3.8-5.5); Red Cell Distribution Width 14.7 % (9.3-17.3); White Blood Count 7.1 T/CUMM (4-12)
[2019-09-17 05:22] LABS: Platelet Count 70 T/CUMM (130-400)
[2019-09-17 05:48] LABS: Acanthocytes Few; Burr Cells Slight; Hypochromasia Slight; Macrocytosis 1+
[2019-09-17 05:49] LABS: Platelet Estimate Decreased
[2019-09-17] MEDS: LEVOTHYROXINE 50 MCG TABLET PO SCH (06:25)
[2019-09-17] MEDS: LIDOCAINE 5% PATCH TRANSDERM SCH (09:30)
[2019-09-17] MEDS: cefTRIAXone 1,000 MG in SYRINGE 1 EACH IV SCH (09:30)
[2019-09-17] MEDS: DOCUSATE SODIUM 100 MG CAPSULE PO SCH ×2 (09:30→20:49)
[2019-09-17] MEDS: POTASSIUM CHLORIDE 20 MEQ/15 ML UDCUP PO SCH ×2 (09:35→20:48)
[2019-09-17] MEDS: VANCOMYCIN INJ 750 MG in SODIUM CHLORIDE 0.9% 250 ML IV SCH (10:45)
[2019-09-17] MEDS: LINACLOTIDE 145 MCG CAPSULE PO SCH (11:07)
[2019-09-17] MEDS: CHLORHEXIDINE 0.12% ORAL RINSE 60 ML BOTTLE SWISH/SPIT SCH ×2 (11:08→20:52)
[2019-09-17] MEDS: PANTOPRAZOLE 40 MG VIAL IV SCH (11:09)
[2019-09-17] MEDS: SACUBITRIL/VALSARTAN 49-51 MG TABLET PO SCH ×2 (12:52→20:48)
[2019-09-17] MEDS: BENZTROPINE 0.5 MG TABLET PO SCH ×2 (12:52→20:49)
[2019-09-17] MEDS: TAMSULOSIN 0.4 MG CAPSULE PO SCH ×2 (12:53→20:49)
[2019-09-17] MEDS: MEROPENEM 500 MG in SODIUM CHLORIDE 0.9% 100 ML IV SCH (12:53)
[2019-09-17] MEDS: FERROUS SULFATE 325 MG TABLET PO SCH (12:53)
[2019-09-17] MEDS: METOPROLOL SUCCINATE XL 25 MG TABLET PO SCH (12:53)
[2019-09-17] MEDS: CYANOCOBALAMIN 500 MCG TABLET PO SCH (12:53)
[2019-09-17] MEDS ORDERED: FUROSEMIDE 40 MG/4 ML VIAL ONE (14:09)
[2019-09-17] MEDS: SIMVASTATIN 10 MG TABLET PO SCH (20:50)
[2019-09-18] MEDS: MEROPENEM 500 MG in SODIUM CHLORIDE 0.9% 100 ML IV SCH ×2 (01:22→13:43)
[2019-09-18] MEDS: SODIUM CHLORIDE 0.9% 1,000 ML IV SCH ×3 (04:14→13:43)
[2019-09-18] MEDS: LEVOTHYROXINE 50 MCG TABLET PO SCH (06:23)
[2019-09-18 07:12] LABS: Calcium 8.1 MG/DL (8.5-10.1); Osmolality,Calculated 324.9 MOS/KG (273-304)
[2019-09-18] MEDS ORDERED: SODIUM CHLORIDE 0.9% 1,000 ML IV STA (09:09)
[2019-09-18] MEDS: LIDOCAINE 5% PATCH TRANSDERM SCH (09:45)
[2019-09-18] MEDS: PANTOPRAZOLE 40 MG VIAL IV SCH (09:45)
[2019-09-18] MEDS: VANCOMYCIN INJ 750 MG in SODIUM CHLORIDE 0.9% 250 ML IV SCH (10:58)
[2019-09-18] MEDS: POTASSIUM CHLORIDE RIDER 10 MEQ in PREMIX 1 EACH IV PRN ×5 (13:43→22:39)
[2019-09-18] MEDS: DOCUSATE SODIUM 100 MG CAPSULE PO SCH ×2 (13:53→21:35)
[2019-09-18] MEDS: BENZTROPINE 0.5 MG TABLET PO SCH ×2 (13:53→21:35)
[2019-09-18] MEDS: TAMSULOSIN 0.4 MG CAPSULE PO SCH ×2 (13:54→21:34)
[2019-09-18] MEDS: LINACLOTIDE 145 MCG CAPSULE PO SCH (13:54)
[2019-09-18] MEDS: FERROUS SULFATE 325 MG TABLET PO SCH (13:54)
[2019-09-18] MEDS: SACUBITRIL/VALSARTAN 49-51 MG TABLET PO SCH ×2 (13:54→21:34)
[2019-09-18] MEDS: POTASSIUM CHLORIDE 20 MEQ/15 ML UDCUP PO SCH ×2 (13:55→21:32)
[2019-09-18] MEDS: CYANOCOBALAMIN 500 MCG TABLET PO SCH (13:55)
[2019-09-18] MEDS: METOPROLOL SUCCINATE XL 25 MG TABLET PO SCH (13:55)
[2019-09-18] MEDS: CHLORHEXIDINE 0.12% ORAL RINSE 60 ML BOTTLE SWISH/SPIT SCH ×2 (14:17→21:32)
[2019-09-18] MEDS: SIMVASTATIN 10 MG TABLET PO SCH (21:31)
[2019-09-19] MEDS: MEROPENEM 500 MG in SODIUM CHLORIDE 0.9% 100 ML IV SCH (01:55)
[2019-09-19] MEDS: SODIUM CHLORIDE 0.9% 1,000 ML IV SCH ×4 (02:02→12:05)
[2019-09-19] MEDS: POTASSIUM CHLORIDE RIDER 10 MEQ in PREMIX 1 EACH IV PRN ×2 (05:19→06:32)
[2019-09-19] MEDS: LEVOTHYROXINE 50 MCG TABLET PO SCH (06:29)
[2019-09-19] MEDS: DOCUSATE SODIUM 100 MG CAPSULE PO SCH (10:58)
[2019-09-19] MEDS: BENZTROPINE 0.5 MG TABLET PO SCH (10:58)
[2019-09-19] MEDS: SACUBITRIL/VALSARTAN 49-51 MG TABLET PO SCH (10:58)
[2019-09-19] MEDS: TAMSULOSIN 0.4 MG CAPSULE PO SCH (10:59)
[2019-09-19] MEDS: POTASSIUM CHLORIDE 20 MEQ/15 ML UDCUP PO SCH (10:59)
[2019-09-19] MEDS: FERROUS SULFATE 325 MG TABLET PO SCH (10:59)
[2019-09-19] MEDS: CHLORHEXIDINE 0.12% ORAL RINSE 60 ML BOTTLE SWISH/SPIT SCH (10:59)
[2019-09-19] MEDS: LINACLOTIDE 145 MCG CAPSULE PO SCH (10:59)
[2019-09-19] MEDS: CYANOCOBALAMIN 500 MCG TABLET PO SCH (11:00)
[2019-09-19] MEDS: METOPROLOL SUCCINATE XL 25 MG TABLET PO SCH (11:00)
[2019-09-19 12:14] VITALS: BP 90/58
[2019-09-19] MEDS: VANCOMYCIN INJ 750 MG in SODIUM CHLORIDE 0.9% 250 ML IV SCH (13:50)
[2019-09-19] MEDS: PANTOPRAZOLE 40 MG VIAL IV SCH (13:50)
[2019-09-19] MEDS: LIDOCAINE 5% PATCH TRANSDERM SCH (13:50)
[2019-09-21] MEDS ORDERED: ERGOCALCIFEROL 50,000 UNIT CAPSULE PO SCH (08:00)
== END 2019-09-19 13:51 | DRG 871 ==
LOC: EDBD → EDUNIT# → N.ED 17:10 → N.EDINP 19:31 → N.2E 21:15
PROVIDERS: ADMIT Family Medicine; ATTEND Family Medicine